=== PATIENT | female | born 1955 | race Caucasian/White ===

== ENCOUNTER → 2024-05-27 10:04 | Outpatient (REF) | payer MEDICARE, OTHER, SELFPAY | LOC: HWRAD 10:04 | PROVIDERS: ATTENDING PHYSICIAN Physician Assistant Medical | DX: Z01.30 Encounter for examination of blood pressure without abnormal findings (principal); M81.0 Age-related osteoporosis without current pathological fracture | CPT/HCPCS: 77080 ==

== ENCOUNTER → 2024-06-29 13:05 | Outpatient (REF) | payer MEDICARE, OTHER, SELFPAY ==
[2024-06-29 14:16] LABS: % Basophils 0.5 % (0-2); % Eosinophils 0.6 % (0-6); % Immature Granulocytes 0.5 % (0-0.5); % Lymphocytes 27.6 % (20.5-51.1); % Monocytes 5.5 % (1.7-9.3); % Neutrophils 65.3 % (42.2-75.2); Absolute Eosinophils 0.1 10^3/uL (0-0.7); Absolute Lymphocytes 2.3 10^3/uL (1.2-3.4); Absolute Monocytes 0.5 10^3/uL (0.1-0.6); Absolute Neutrophils 5.5 10^3/uL (1.4-6.5); Hematocrit 30.7 % (37.0-47.0); Mean Corp Hgb Conc. 32.6 g/dL (33.0-37.0); Mean Corpuscular Hgb 21.5 pg (27.0-31.0); Mean Corpuscular Volume 65.9 fL (81.0-99.0); Mean Platelet Volume 10.1 fL (7.4-10.4); Nucleated Red Blood Cells % 0 %; Platelet Count 449 10^3/uL (130-400); Red Blood Cell Count 4.66 10^6/uL (4.20-5.40); Red Cell Dist. Width 14.9 % (11.5-14.5); White Blood Cell Count 8.5 10^3/uL (4.8-10.8)
[2024-06-29 14:49] LABS: ALT (SGPT) 16 U/L (0-35); AST (SGOT) 29 U/L (14-36); Albumin 3.6 g/dl (3.5-5.0); Alkaline Phosphatase 65 U/L (38-126); Blood Urea Nitrogen 15 mg/dl (7-17); Calcium 8.9 mg/dl (8.4-10.2); Carbon Dioxide 27 mmol/L (22-30); Chloride 101 mmol/L (98-107); Glucose 134 mg/dl (70-99); Potassium 3.8 mmol/L (3.5-5.1); Sodium 137 mmol/L (135-145); Total Bilirubin 0.4 mg/dl (0.2-1.3); Total Protein 6.3 g/dl (6.3-8.2); eGFR > 60.00
== END ==
LOC: REG 13:05
PROVIDERS: ATTENDING PHYSICIAN Physician Assistant Medical
DX: R10.30 Lower abdominal pain, unspecified (principal); R10.2 Pelvic and perineal pain; R14.0 Abdominal distension (gaseous)
CPT/HCPCS: 36415; 80053; 85025

== ENCOUNTER → 2024-06-30 13:52 | Outpatient (REF) | payer MEDICARE, OTHER, SELFPAY | LOC: RAD 13:52 | PROVIDERS: ATTENDING PHYSICIAN Physician Assistant Medical | DX: R10.30 Lower abdominal pain, unspecified (principal); R10.2 Pelvic and perineal pain; R14.0 Abdominal distension (gaseous) | CPT/HCPCS: 74178; Q9967 ==

== ENCOUNTER → 2024-07-10 11:39 | Outpatient (REF) | payer MEDICARE, OTHER, SELFPAY ==
[2024-07-10] VITALS (7 sets, daily range): BP systolic 78–162; BP diastolic 76–86
== END ==
LOC: RADI 11:39
PROVIDERS: ATTENDING PHYSICIAN Obstetrics & Gynecology Gynecologic Oncology; FAMILY PHYSICIAN Physician Assistant Medical
DX: C26.0 Malignant neoplasm of intestinal tract, part unspecified (principal)
CPT/HCPCS: 88305; 49180; 77012; 88333; 88341; 88360; 99152

== ENCOUNTER → 2024-07-20 08:34 | Outpatient (REF) | payer MEDICARE, OTHER, SELFPAY ==
[2024-07-20 09:03] VITALS: BP 142/66; BP_SYST 86
[2024-07-20] MEDS: ANCEF 10 IV (09:51)
[2024-07-20 11:15] VITALS: BP 140/67
== END ==
LOC: RADI 08:34
PROVIDERS: ATTENDING PHYSICIAN Obstetrics & Gynecology Gynecologic Oncology; FAMILY PHYSICIAN Physician Assistant Medical
DX: C56.1 Malignant neoplasm of right ovary (principal)
CPT/HCPCS: 36561; 76937; 77001; 99152; 99153; C1788

== ENCOUNTER 2024-07-27 06:22 | Day surgery (SDC) | payer MEDICARE, OTHER, SELFPAY | END 2024-07-27 10:20 | disposition home or self-care (01) | LOC: GI 06:22 | PROVIDERS: ATTENDING PHYSICIAN Internal Medicine Gastroenterology | DX: R19.00 Intra-abdominal and pelvic swelling, mass and lump, unspecified site (principal); R94.8 Abnormal results of function studies of other organs and systems; K64.0 First degree hemorrhoids; K63.89 Other specified diseases of intestine; R93.3 Abnormal findings on diagnostic imaging of other parts of digestive tract; K31.7 Polyp of stomach and duodenum; D12.0 Benign neoplasm of cecum; D12.3 Benign neoplasm of transverse colon | CPT/HCPCS: 45385; 45380; 43239; 88305 ==

== ENCOUNTER 2024-07-28 13:54 | Day surgery (SDC) | payer MEDICARE, OTHER, SELFPAY ==
[2024-07-28 13:13] VITALS: BMI 25.2
[2024-07-28 13:30] VITALS: BP 140/75; BMI 25.2
[2024-07-28 16:00] VITALS: BP 111/69
[2024-07-28 16:16] VITALS: BP 126/83
== END 2024-07-28 16:30 | disposition home or self-care (01) ==
LOC: GI 13:54
PROVIDERS: ATTENDING PHYSICIAN Internal Medicine Gastroenterology
DX: R93.5 Abnormal findings on diagnostic imaging of other abdominal regions, including retroperitoneum (principal); R18.8 Other ascites; C76.3 Malignant neoplasm of pelvis
CPT/HCPCS: 43237

== ENCOUNTER 2024-08-01 15:24 | Emergency (ER) | payer MEDICARE, SELFPAY ==
[2024-08-01 15:35] VITALS: BP 181/78
--- NOTE | 2024-08-01 15:37 | ED.GENMED ---
ED Provider Triage
<Alex Machado PA-C - Last Filed: 08/01/24 15:38>
-
Patient seen by provider in Triage?: Seen in Triage
Attestation: A medical screening examination has been initiated by a qualified medical provider. Based on the assessment performed at this time, it has been determined that an emergent medical condition may exist and the patient has been informed
that further medical evaluation and possible additional diagnostic testing may be needed.
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 Motley for increased abdominal edema and bilateral lower extremity edema with concern for possible DVT. He is requesting labs,
CT of the abdomen and pelvis as well as ultrasound to rule out DVT ordered. Patient is otherwise currently stable.
GENERAL: Alert , in no apparent distress
EYE: No visual abnormalities.
NECK: Trachea midline
ENT: No visible abnormalities.
LUNGS: No acute respiratory distress
NEUROLOGICAL: Alert and oriented
SKIN: Skin intact. No visible changes.
MUSCULOSKELETAL: Moving extremities normally
PSYCH: Normal and appropriate interaction.
This is a medical evaluation conducted in person to initiate diagnostic evaluation and provide initial therapeutics. Please see further documentation by the treating clinician.
History of Present Illness
<Alex Machado PA-C - Last Filed: 08/01/24 15:38>
General
Chief Complaint: Abdominal Pain
Time Seen by Provider: 08/01/24 18:51
<Connie Watkins PA-C - Last Filed: 08/02/24 23:53>
General
Source: patient
Exam Limitations: none
Nursing documentation reviewed up to this point in time: agreed with
History of Present Illness
History of Present Illness:
Patient is a 69-year-old female with history hypertension, recently diagnosed ovarian CA presenting to the emergency department for evaluation of abdominal distention and worsening lower leg swelling. Patient reports recent increase in abdominal
distention and abdominal discomfort. She also noticed today that her left leg seemed swollen. Patient states that she has gained 10 pounds in the past week. 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 Motley who recommended she be seen
in the emergency department to rule out a possible blood clot and to evaluate for worsening ascites.
Patient denies any fevers or chills. Patient denies any chest pain or shortness of breath. Patient denies any severe abdominal pain, just states that she feels 'full '.
Patient is reportedly scheduled for surgery this week to remove ovarian mass.
Past History
<Alex Machado PA-C - Last Filed: 08/01/24 15:38>
Past History
ED Past Medical History: None
Social History
Tobacco: Non-smoker
Personal: Other (Engaged)
Review of Systems
<Connie Watkins PA-C - Last Filed: 08/02/24 23:53>
Review of Systems
Allergies reviewed?: Yes
All Other Systems: ROS reviewed and negative except as documented in HPI and ROS
Phy Exam
<Connie Watkins PA-C - Last Filed: 08/02/24 23:53>
Physical Exam
Physical Exam:
Vitals: Hypertensive, otherwise stable vital signs
General: Patient is well appearing, no acute distress. Nontoxic appearing
Skin: Warm and dry, no rashes or lesions
Head: Normocephalic, atraumatic
Eyes: Sclera nonicteric. EOMs intact. No nystagmus.
Throat: Protecting airway
Neck: Normal ROM, no cervical spine tenderness, no meningismus
Cardiac: Regular rate and rhythm, no murmurs.
Pulm: Normal respiratory effort, no wheezes, rales, rhonchi heard on exam.
Abdomen: Moderate abdominal distention. Soft. No rebound tenderness or guarding. No CVA tenderness
Extremities: Trace edema of bilateral lower extremities. Sensation fully intact. Palpable DP pulses bilaterally. Negative Homans' sign bilaterally. No erythema or warmth of lower extremities.
Neuro: AAOx3. Grossly intact.
Psychiatric: Normal affect.
Course
<Alex Machado PA-C - Last Filed: 08/01/24 15:38>
Orders/Labs/Results
Orders:
Orders
08/01/24 15:35
CT Abd/pelvis W Iv Cont Urgent
Comment:
Reason For Exam: abd edema, newly diagnosed ovarian cancer
Venous Doppler Lwr Ext Bilat [US Periph Venous LOWER Ext Tan] Urgent
Comment:
Reason For Exam: edema, recent ovarian cancer diagnosis
08/01/24 15:51
Complete Blood Count/With Diff Urgent
Comprehensive Metabolic Panel Urgent
NT-proBNP Urgent
Abnormal Lab Results
08/01/24
15:51
Hgb 10.9 L g/dL
(12.0-16.0)
Hct 34.4 L %
(37.0-47.0)
MCV 64.5 L fL
(81.0-99.0)
MCH 20.5 L pg
(27.0-31.0)
MCHC 31.7 L g/dL
(33.0-37.0)
RDW 19.0 H %
(11.5-14.5)
Sodium 134 L mmol/L
(135-145)
Creatinine 0.5 L mg/dL
(0.6-1.0)
Total Protein 5.8 L g/dl
(6.3-8.2)
Albumin 3.4 L g/dl
(3.5-5.0)
08/01/24 15:51
08/01/24 15:51
Vital Signs
Initial and Last Documented VS:
Initial Vital Signs
Temp Pulse Resp BP Pulse Ox
98 F 96 18 181/78 100
08/01/24 15:35 08/01/24 15:35 08/01/24 15:35 08/01/24 15:35 08/01/24 15:35
Last Documented Vital Signs
Temp Pulse Resp BP Pulse Ox
97.6 F 81 17 126/76 97
08/01/24 17:51 08/01/24 20:51 08/01/24 20:51 08/01/24 20:51 08/01/24 20:51
<Connie Watkins PA-C - Last Filed: 08/02/24 23:53>
Orders/Labs/Results
Orders:
Orders
08/01/24 15:35
CT Abd/pelvis W Iv Cont Urgent
Comment:
Reason For Exam: abd edema, newly diagnosed ovarian cancer
Venous Doppler Lwr Ext Bilat [US Periph Venous LOWER Ext Tan] Urgent
Comment:
Reason For Exam: edema, recent ovarian cancer diagnosis
08/01/24 15:51
Complete Blood Count/With Diff Urgent
Comprehensive Metabolic Panel Urgent
NT-proBNP Urgent
Abnormal Lab Results
08/01/24
15:51
Hgb 10.9 L g/dL
(12.0-16.0)
Hct 34.4 L %
(37.0-47.0)
MCV 64.5 L fL
(81.0-99.0)
MCH 20.5 L pg
(27.0-31.0)
MCHC 31.7 L g/dL
(33.0-37.0)
RDW 19.0 H %
(11.5-14.5)
Sodium 134 L mmol/L
(135-145)
Creatinine 0.5 L mg/dL
(0.6-1.0)
Total Protein 5.8 L g/dl
(6.3-8.2)
Albumin 3.4 L g/dl
(3.5-5.0)
08/01/24 15:51
08/01/24 15:51
Vital Signs
Initial and Last Documented VS:
Initial Vital Signs
Temp Pulse Resp BP Pulse Ox
98 F 96 18 181/78 100
08/01/24 15:35 08/01/24 15:35 08/01/24 15:35 08/01/24 15:35 08/01/24 15:35
Last Documented Vital Signs
Temp Pulse Resp BP Pulse Ox
97.6 F 81 17 126/76 97
08/01/24 17:51 08/01/24 20:51 08/01/24 20:51 08/01/24 20:51 08/01/24 20:51
<Connie Watkins PA-C - Last Filed: 08/02/24 23:53>
MDM/Problems Addressed
Differential Diagnosis Includes:
Not limited to: Abdominal ascites secondary to progression of disease, DVT, Santiago's cyst, CHF, cellulitis, do not suspect SBP etc.
MDM/Problems Addressed:
69 year old female with recently diagnosed ovarian cancer presenting with worsening abdominal distention and lower extremity swelling. No fevers or systemic signs of infection. No significant abdominal pain. Patient hypertensive on arrival although
resolved by my assessment. Otherwise has stable vital signs, she is afebrile. Exam as above.
Patient sent over by leather grainer/onc Dr. Motley to r/o DVT and evaluate for worsening ascites. Labs obtained in triage without clinically significant abnormalities. B/l lower extremity US show no DVT, b/l bakers cysts noted. CT report shows progression of
disease including increase in ovarian mass and worsening ascites. Clinically - patient without infectious symptoms or abdominal pain. Do not suspect SBP.
CT was discussed with Dr. Motley. Given increase in ascites - admission was discussed with patient for possible therapeutic paracentesis. Patient declines admission and will plan for outpatient paracentesis on Saturday. Dr. Motley feels this is
reasonable. Patient will be discharged with close leather grainer/onc f/u outpatient. Return precautions discussed - specifically any signs of infection.
Chronic conditions affecting care:
Ovarian CA, hypertension
Acute Exacerbation and/or Progression of Chronic Illness:
Acutely hypertensive
<Connie Watkins PA-C - Last Filed: 08/02/24 23:53>
*Radiology
Radiology exam reviewed: radiology read reviewed
*Pulse Oximetry
Patient hypoxic: no
*EKG
Interpreted by ED Provider?: NA
*Guest Experience Specialist Interpretation
Rate: Guest Experience Specialist- N/A
*Critical Care Note
Total Time (30-74mins, 75-104mins- exclusive of procedures): Not Applicable
<Connie Watkins PA-C - Last Filed: 08/02/24 23:53>
Patient Management
Discussion with other providers: Casting Tester (Chemist Organic/onc - Dr. Motley)
Escalation/DeEscalation of care consider admission/obs:
Admission offered for therapeutic paracenteses although patient declines will be discharged with outpatient leather grainer/onc f/u
ED Attending Note
<Alex Machado PA-C - Last Filed: 08/01/24 15:38>
-
Portions of this chart may have been created with voice recognition software.� Occasional wrong word or��sound alike� substitutions may have occurred due to the inherent limitations of voice recognition software.
Discharge Plan
Departure
Patient Disposition: Home (Routine Discharge)
Date of Disposition: 08/01/24
Time of Disposition: 21:25
Patient with high blood pressure during this ER visit?: Yes
Condition: Good
Covid-19: Not Applicable
Discharge Problem:
Abdominal ascites, Swelling of both lower extremities
Instructions: Santiago's Cyst (DC), Abdominal Pain, BLOOD PRESSURE
Prescriptions:
No Action
multivitamin Tablet
1 tab PO DAILY
garlic 100 mg Tablet
100 mg PO DAILY
coenzyme Q10 [CoQ-10] 100 mg Capsule
100 mg PO DAILY
Fish Oil 900 mg-360 mg- 455 mg-1,000 mg Capsule
1 cap PO DAILY
Vitamin C 1,000 mg Tablet Extended Release
1,000 mg PO Q12H
cholecalciferol (vitamin D3) [Vitamin D3] 50 mcg (2,000 unit) Tablet
50 mcg PO DAILY
turmeric 400 mg Capsule
400 mg PO DAILY
collagen
1 dose PO DAILY
zinc
1 dose PO DAILY
magnesium
1 dose PO DAILY
Referrals:
Donnell Taylor PA-C [Family Provider] -
Ar Motley MD [Active] - Keep scheduled appt
Activity Restrictions/Additional Instructions:
Return to the emergency department with any fevers, worsening abdominal pain/distention, intractable nausea/vomiting, chest pain, shortness of breath, worsening in current symptoms, or any other concerns
-As discussed�your ultrasound showed no evidence of blood clots today. However�you do have bilateral Santiago's cyst.
-You should follow-up with your gynecology/oncologist, Dr. Motley closely as scheduled
Monitor your symptoms closely and return to the emergency department with any acute worsening/new symptoms or any signs of infection
Interventions
Interventions:
*Risk Screen - Suicide Last Done: 08/01/24 15:35
*General Assessment Last Done: 08/01/24 15:35
*Neglect/Abuse Screening Last Done: 08/01/24 15:35
*ED COVID-19 Vaccine History Last Done: 08/01/24 15:35
*Nursing Disposition Last Done: 08/01/24 21:46
LO-Gtcjah-Wceecwllnr Assessment Last Done: 08/01/24 17:24
Discharge Date and Time
Discharge Date/Time: 08/01/24 21:46
Print Language: LIBYAN
[2024-08-01 16:18] LABS: % Basophils 0.5 % (0-2); % Eosinophils 0.7 % (0-6); % Immature Granulocytes 0.3 % (0-0.5); % Lymphocytes 29.8 % (20.5-51.1); % Neutrophils 62.7 % (42.2-75.2); Absolute Eosinophils 0.1 10^3/uL (0-0.7); Absolute Lymphocytes 2.2 10^3/uL (1.2-3.4); Absolute Monocytes 0.5 10^3/uL (0.1-0.6); Absolute Neutrophils 4.7 10^3/uL (1.4-6.5); Hematocrit 34.4 % (37.0-47.0); Hemoglobin 10.9 g/dL (12.0-16.0); Mean Corp Hgb Conc. 31.7 g/dL (33.0-37.0); Mean Corpuscular Hgb 20.5 pg (27.0-31.0); Mean Corpuscular Volume 64.5 fL (81.0-99.0); Mean Platelet Volume 10.1 fL (7.4-10.4); Nucleated Red Blood Cells % 0 %; Platelet Count 306 10^3/uL (130-400); Red Blood Cell Count 5.33 10^6/uL (4.20-5.40); White Blood Cell Count 7.5 10^3/uL (4.8-10.8)
[2024-08-01 16:26] LABS: ALT (SGPT) 13 U/L (0-35); AST (SGOT) 32 U/L (14-36); Albumin 3.4 g/dl (3.5-5.0); Alkaline Phosphatase 47 U/L (38-126); Blood Urea Nitrogen 14 mg/dl (7-17); Calcium 8.5 mg/dl (8.4-10.2); Carbon Dioxide 27 mmol/L (22-30); Chloride 100 mmol/L (98-107); Glucose 99 mg/dl (70-99); Sodium 134 mmol/L (135-145); Total Bilirubin 0.9 mg/dl (0.2-1.3); Total Protein 5.8 g/dl (6.3-8.2); eGFR > 60.00
[2024-08-01 16:35] LABS: NT-proBNP 58.9 pg/ml
[2024-08-01 17:24] VITALS: BP 142/69
[2024-08-01 17:51] VITALS: BP 109/74
[2024-08-01 20:51] VITALS: BP 126/76
== END 2024-08-01 21:46 | disposition home or self-care (01) ==
LOC: EMR 15:24
PROVIDERS: Physician Assistant Medical; EMERGENCY PHYSICIAN Emergency Medicine; FAMILY PHYSICIAN Physician Assistant Medical
DX: R18.8 Other ascites (principal); R60.0 Localized edema; R10.9 Unspecified abdominal pain; C56.9 Malignant neoplasm of unspecified ovary; I10 Essential (primary) hypertension
CPT/HCPCS: 99284; 74177; 80053; 83880; 85025; 93970; Q9967

== ENCOUNTER → 2024-08-04 10:16 | Outpatient (REF) | payer MEDICARE, SELFPAY ==
[2024-08-04 10:20] VITALS: BP 113/80; BP_SYST 106
[2024-08-04 11:25] VITALS: BP 126/67; BP_SYST 104
[2024-08-04 11:30] VITALS: BP 126/67
[2024-08-04 11:56] LABS: Body Fluid Mononuclear 61.5 %; Body Fluid Polymorphonuclear 38.5 %; Body Fluid WBC 281 /CUMM
[2024-08-04 12:03] LABS: Body Fluid Second Tech ASW
== END ==
LOC: RADI 10:16
PROVIDERS: ATTENDING PHYSICIAN Obstetrics & Gynecology Gynecologic Oncology
DX: C80.1 Malignant (primary) neoplasm, unspecified (principal); R18.0 Malignant ascites
CPT/HCPCS: 88305; 49083; 88112; 89051

== ENCOUNTER 2024-08-10 08:35 | Emergency (ER) | payer MEDICARE, OTHER, SELFPAY ==
[2024-08-10 08:36] VITALS: BP 133/85
--- NOTE | 2024-08-10 10:10 | ED.GENMED ---
History of Present Illness
General
Chief Complaint: Abdominal Symptoms
Source: patient
Exam Limitations: none
Time Seen by Provider: 08/10/24 09:51
Nursing documentation reviewed up to this point in time: agreed with
History of Present Illness
History of Present Illness:
Patient with history of metastatic ovarian cancer, being scheduled for initiation of chemotherapy, status post paracentesis last week, presents to ED secondary to increased abdominal swelling, which has caused nausea sensation along with shortness
of breath, especially over the past 48 hours. Denies fever or chills. Denies coughing. Denies vomiting or diarrhea. Denies loss of appetite. Denies dizziness.
Past History
Past History
ED Past Medical History: None
Social History
Tobacco: Non-smoker
Personal: Other (Engaged)
Review of Systems
Review of Systems
Allergies reviewed?: Yes
All Other Systems: ROS reviewed and negative except as documented in HPI and ROS
Constitutional: Reports no symptoms; Denies fever or chills
Respiratory: Reports trouble breathing; Denies cough
Cardiac: Reports no symptoms
ABD/GI: Reports nausea; Denies abdominal pain, vomiting or diarrhea
: Reports no symptoms
Musculoskeletal: Reports no symptoms
Skin: Reports no symptoms
Neurological: Reports no symptoms
Phy Exam
Physical Exam
Physical Exam:
Physical Exam
General: no apparent distress, not acutely ill. afebrile
Head: nc/at. eomi
Neck: supple. normal range of motion.
Heart: s1/s2 regular rate and rhythm, no murmur. equal radial pulses.
Lungs: no acute respiratory distress. clear bilaterally
Abdomen: normal bowel sounds. not tender. mild distention noted.
Neuro: alert and oriented x 3. no focal neurological deficits
Skin: no rash
Psychiatric: well kept. interactive and cooperative
Extremities: no edema. no calf tenderness.
Course
Orders/Labs/Results
Orders:
Orders
08/10/24 08:40
Crisis Consult Urgent
Reason for Consult: SI
08/10/24 10:11
[facility] CONSULT Urgent
Consulting Provider: Robbie Fried
Was physician already notified: Yes
Reason for Consult/Procedure: paracentesis
Acknowledgement that appropriate orders are entered: Yes
08/10/24 13:26
Body Fluid Cell Count Routine
What is the Body Fluid: peritoneal
Date Specimen was Collected: 08/10/24
Time Specimen was Collected: 13:19
Vital Signs
Initial and Last Documented VS:
Initial Vital Signs
Temp Pulse Resp BP Pulse Ox
98.0 F 108 16 133/85 98
08/10/24 08:36 08/10/24 08:36 08/10/24 08:36 08/10/24 08:36 08/10/24 08:36
Last Documented Vital Signs
Temp Pulse Resp BP Pulse Ox
98.3 F 104 18 123/69 97
08/10/24 12:35 08/10/24 15:06 08/10/24 13:45 08/10/24 15:06 08/10/24 15:06
MDM/Problems Addressed
MDM/Problems Addressed:
2.25 L of fluid removed during paracentesis with [facility], with improvement in symptoms. Patient otherwise is afebrile, hemodynamically stable, and nontoxic-appearing. Likely future paracentesis, to be arranged by [facility] in coordination with patient's
oncologist.
Discussed with GI/[facility] - no indication for albumin infusion at this time
Discussed ED visit with patient's oncologist, . via tigertext
*Critical Care Note
Total Time (30-74mins, 75-104mins- exclusive of procedures): Not Applicable
ED Attending Note
-
Portions of this chart may have been created with voice recognition software.� Occasional wrong word or��sound alike� substitutions may have occurred due to the inherent limitations of voice recognition software.
Discharge Plan
Departure
Patient Disposition: Home (Routine Discharge)
Date of Disposition: 08/10/24
Time of Disposition: 14:59
Patient with high blood pressure during this ER visit?: Yes
Condition: Good
Discharge Problem:
Ascites
Instructions: Abdominal paracentesis
Prescriptions:
No Action
multivitamin Tablet
1 tab PO DAILY
garlic 100 mg Tablet
100 mg PO DAILY
coenzyme Q10 [CoQ-10] 100 mg Capsule
100 mg PO DAILY
Fish Oil 900 mg-360 mg- 455 mg-1,000 mg Capsule
1 cap PO DAILY
Vitamin C 1,000 mg Tablet Extended Release
1,000 mg PO Q12H
cholecalciferol (vitamin D3) [Vitamin D3] 50 mcg (2,000 unit) Tablet
50 mcg PO DAILY
turmeric 400 mg Capsule
400 mg PO DAILY
collagen
1 dose PO DAILY
zinc
1 dose PO DAILY
magnesium
1 dose PO DAILY
Referrals:
Donnell Taylor PA-C [Family Provider] -
Activity Restrictions/Additional Instructions:
As discussed, please continue to follow-up with your oncologist for further evaluation and treatment.
Interventions
Interventions:
*Risk Screen - Suicide Last Done: 08/10/24 08:36
*General Assessment Last Done: 08/10/24 08:36
*Neglect/Abuse Screening Last Done: 08/10/24 15:06
ED- Fall Risk Assessment Last Done: 08/10/24 15:06
*ED COVID-19 Vaccine History Last Done: 08/10/24 08:36
*Nursing Disposition Last Done: 08/10/24 15:06
IS-Fwhnnd-Fwxrvaacdo Assessment Last Done: 08/10/24 11:31
Discharge Date and Time
Discharge Date/Time: 08/10/24 15:07
Print Language: JORDANIAN
[2024-08-10 11:08] VITALS: BP 108/71
[2024-08-10 12:35] VITALS: BP 127/71; BP_SYST 107
[2024-08-10 13:27] VITALS: BP 124/61
[2024-08-10 13:45] VITALS: BP 119/74
[2024-08-10 13:54] LABS: Body Fluid Mononuclear 70.2 %; Body Fluid Polymorphonuclear 29.8 %; Body Fluid WBC 215 /CUMM
[2024-08-10 13:56] LABS: Body Fluid Second Tech ASW
[2024-08-10 15:06] VITALS: BP 123/69
== END 2024-08-10 15:07 | disposition home or self-care (01) ==
LOC: EMR 08:35
PROVIDERS: CONSULT PHYSICIAN Radiology Vascular & Interventional Radiology; EMERGENCY PHYSICIAN Emergency Medicine; FAMILY PHYSICIAN Physician Assistant Medical
DX: C56.9 Malignant neoplasm of unspecified ovary (principal); R18.0 Malignant ascites; C79.9 Secondary malignant neoplasm of unspecified site
CPT/HCPCS: 99285; 49083; 89051

== ENCOUNTER → 2024-08-13 13:41 | Outpatient (REF) | payer MEDICARE, OTHER, SELFPAY ==
[2024-08-13 14:30] LABS: % Basophils 0.3 % (0-2); % Eosinophils 0.3 % (0-6); % Immature Granulocytes 0.7 % (0-0.5); % Lymphocytes 16.6 % (20.5-51.1); % Monocytes 5.6 % (1.7-9.3); % Neutrophils 76.5 % (42.2-75.2); Absolute Immature Granulocytes 0.1 10^3/uL (0-0.05); Absolute Lymphocytes 1.6 10^3/uL (1.2-3.4); Absolute Monocytes 0.6 10^3/uL (0.1-0.6); Absolute Neutrophils 7.5 10^3/uL (1.4-6.5); Hematocrit 36.3 % (37.0-47.0); Hemoglobin 11.6 g/dL (12.0-16.0); Mean Corpuscular Hgb 20.8 pg (27.0-31.0); Mean Corpuscular Volume 64.9 fL (81.0-99.0); Mean Platelet Volume 9.3 fL (7.4-10.4); Nucleated Red Blood Cells % 0 %; Platelet Count 443 10^3/uL (130-400); Red Blood Cell Count 5.59 10^6/uL (4.20-5.40); Red Cell Dist. Width 20.8 % (11.5-14.5); White Blood Cell Count 9.8 10^3/uL (4.8-10.8)
[2024-08-13 14:48] LABS: D-Dimer 5.09 ug/mlFEU (0.00-0.50)
[2024-08-13 14:54] LABS: ALT (SGPT) 12 U/L (0-35); AST (SGOT) 43 U/L (14-36); Albumin 2.8 g/dl (3.5-5.0); Alkaline Phosphatase 67 U/L (38-126); Blood Urea Nitrogen 9 mg/dl (7-17); Calcium 8.3 mg/dl (8.4-10.2); Carbon Dioxide 26 mmol/L (22-30); Chloride 95 mmol/L (98-107); Glucose 147 mg/dl (70-99); Potassium 4.6 mmol/L (3.5-5.1); Sodium 127 mmol/L (135-145); Total Bilirubin 0.5 mg/dl (0.2-1.3); Total Protein 5.3 g/dl (6.3-8.2); eGFR > 60.00
[2024-08-13 15:29] LABS: Urine Protein 7 mg/dl
== END ==
LOC: REG 13:41
PROVIDERS: ATTENDING PHYSICIAN Internal Medicine Hematology & Oncology; FAMILY PHYSICIAN Physician Assistant Medical
DX: C56.1 Malignant neoplasm of right ovary (principal); C80.0 Disseminated malignant neoplasm, unspecified; D56.9 Thalassemia, unspecified; G89.3 Neoplasm related pain (acute) (chronic)
CPT/HCPCS: 36415; 80053; 82570; 84156; 85025; 85379

== ENCOUNTER → 2024-08-17 10:48 | Outpatient (REF) | payer MEDICARE, OTHER, SELFPAY ==
[2024-08-17 11:24] VITALS: BP 129/80
[2024-08-17 13:06] LABS: Body Fluid Mononuclear 47.9 %; Body Fluid Polymorphonuclear 52.1 %; Body Fluid Second Tech EM; Body Fluid WBC 808 /CUMM
== END ==
LOC: RADI 10:48
PROVIDERS: ATTENDING PHYSICIAN Physician Assistant Surgical; FAMILY PHYSICIAN Physician Assistant Medical
DX: C80.1 Malignant (primary) neoplasm, unspecified (principal); R18.0 Malignant ascites
CPT/HCPCS: 49083; 89051

== ENCOUNTER → 2024-08-18 09:08 | Outpatient (REF) | payer MEDICARE, OTHER, SELFPAY | LOC: WDC 09:08 | PROVIDERS: ATTENDING PHYSICIAN Internal Medicine Hematology & Oncology; FAMILY PHYSICIAN Physician Assistant Medical | DX: R92.8 Other abnormal and inconclusive findings on diagnostic imaging of breast (principal) | CPT/HCPCS: 77062; 77066 ==

== ENCOUNTER → 2024-08-26 09:50 | Outpatient (REF) | payer MEDICARE, OTHER, SELFPAY | LOC: HWRAD 09:50 | PROVIDERS: ATTENDING PHYSICIAN Internal Medicine Hematology & Oncology; FAMILY PHYSICIAN Physician Assistant Medical | DX: C56.1 Malignant neoplasm of right ovary (principal); C80.0 Disseminated malignant neoplasm, unspecified; D56.9 Thalassemia, unspecified; G89.3 Neoplasm related pain (acute) (chronic) | CPT/HCPCS: 76705 ==

== ENCOUNTER → 2024-09-28 12:56 | Outpatient (REF) | payer MEDICARE, OTHER, SELFPAY ==
[2024-09-28 13:20] VITALS: BP 136/80; BP_SYST 82
[2024-09-28 14:01] VITALS: BP 130/68; BP_SYST 77
[2024-09-28 14:05] VITALS: BP 130/68
[2024-09-28 15:17] LABS: Body Fluid Mononuclear 28.5 %; Body Fluid Polymorphonuclear 71.5 %; Body Fluid WBC 2943 /CUMM
[2024-09-28 16:04] LABS: Body Fluid Second Tech DW
== END ==
LOC: RADI 12:56
PROVIDERS: ATTENDING PHYSICIAN Physician Assistant Surgical; FAMILY PHYSICIAN Physician Assistant Medical; OTHER PHYSICIAN Internal Medicine Hematology & Oncology
DX: C80.1 Malignant (primary) neoplasm, unspecified (principal); R18.0 Malignant ascites
CPT/HCPCS: 49083; 89051

== ENCOUNTER → 2024-10-09 09:53 | Outpatient (REF) | payer MEDICARE, OTHER, SELFPAY ==
[2024-10-09 10:15] VITALS: BP 139/82; BP_SYST 99
[2024-10-09 10:50] VITALS: BP 133/77; BP_SYST 88
[2024-10-09 10:58] VITALS: BP 133/77
[2024-10-09 11:57] LABS: Body Fluid WBC 1956 /CUMM
[2024-10-09 11:58] LABS: Body Fluid Mononuclear 31.7 %; Body Fluid Polymorphonuclear 68.3 %; Body Fluid Second Tech EM
== END ==
LOC: RADI 09:53
PROVIDERS: ATTENDING PHYSICIAN Physician Assistant Surgical; FAMILY PHYSICIAN Physician Assistant Medical
DX: C80.1 Malignant (primary) neoplasm, unspecified (principal); R18.0 Malignant ascites
CPT/HCPCS: 49083; 89051

== ENCOUNTER → 2024-10-12 07:59 | Outpatient (REF) | payer MEDICARE, OTHER, SELFPAY | LOC: HWRAD 07:59 | PROVIDERS: ATTENDING PHYSICIAN Nurse Practitioner Adult Health; FAMILY PHYSICIAN Physician Assistant Medical; REFERRING PHYSICIAN Internal Medicine Hematology & Oncology | DX: C80.0 Disseminated malignant neoplasm, unspecified (principal); C56.1 Malignant neoplasm of right ovary; C56.9 Malignant neoplasm of unspecified ovary; G89.3 Neoplasm related pain (acute) (chronic) | CPT/HCPCS: 76700 ==

== ENCOUNTER → 2024-10-16 06:54 | Outpatient (REF) | payer MEDICARE, OTHER, SELFPAY ==
[2024-10-16 07:10] VITALS: BP 113/66; BP_SYST 92
[2024-10-16 08:05] VITALS: BP 113/55; BP_SYST 89
[2024-10-16 08:15] VITALS: BP 113/55
[2024-10-16 10:19] LABS: Body Fluid Mononuclear 29.1 %; Body Fluid Polymorphonuclear 70.9 %; Body Fluid WBC 1972 /CUMM
[2024-10-16 10:56] LABS: Body Fluid Second Tech AMA
== END ==
LOC: RADI 06:54
PROVIDERS: ATTENDING PHYSICIAN Physician Assistant Surgical; FAMILY PHYSICIAN Physician Assistant Medical; OTHER PHYSICIAN Internal Medicine Hematology & Oncology
DX: C80.1 Malignant (primary) neoplasm, unspecified (principal); R18.0 Malignant ascites
CPT/HCPCS: 49083; 89051

== ENCOUNTER → 2024-10-26 10:35 | Outpatient (REF) | payer MEDICARE, OTHER, SELFPAY ==
[2024-10-26 10:52] VITALS: BP 143/77; BP_SYST 96
[2024-10-26 11:30] VITALS: BP 106/41
[2024-10-26 12:15] LABS: Body Fluid WBC 1477 /CUMM
[2024-10-26 12:16] LABS: Body Fluid Mononuclear 29.3 %; Body Fluid Polymorphonuclear 70.7 %
[2024-10-26 12:17] LABS: Body Fluid Second Tech EM
== END ==
LOC: RADI 10:35
PROVIDERS: ATTENDING PHYSICIAN Physician Assistant Surgical
DX: C80.1 Malignant (primary) neoplasm, unspecified (principal); R18.0 Malignant ascites
CPT/HCPCS: 49083; 89051

== ENCOUNTER → 2024-11-02 13:26 | Outpatient (REF) | payer MEDICARE, OTHER, SELFPAY | LOC: RAD 13:26 | PROVIDERS: ATTENDING PHYSICIAN Nurse Practitioner Adult Health; FAMILY PHYSICIAN Physician Assistant Medical | DX: C56.1 Malignant neoplasm of right ovary (principal); C80.0 Disseminated malignant neoplasm, unspecified; D56.9 Thalassemia, unspecified; G89.3 Neoplasm related pain (acute) (chronic) | CPT/HCPCS: 74019 ==

== ENCOUNTER → 2024-11-18 12:23 | Outpatient (REF) | payer OTHER, MEDICARE, SELFPAY | LOC: RADI 12:23 | PROVIDERS: ATTENDING PHYSICIAN Physician Assistant Surgical; FAMILY PHYSICIAN Physician Assistant Medical | DX: R18.8 Other ascites (principal); Z53.8 Procedure and treatment not carried out for other reasons | CPT/HCPCS: 76705 ==

== ENCOUNTER → 2024-11-19 10:27 | Outpatient (REF) | payer OTHER, MEDICARE, SELFPAY ==
[2024-11-19 11:34] LABS: CEA 5.25 ng/ml
[2024-11-19 19:04] LABS: CA 125 202 U/mL (0-35)
[2024-11-22 09:24] LABS: CA 19-9 1566 U/mL (<=35)
== END ==
LOC: OIDL 10:27
PROVIDERS: ATTENDING PHYSICIAN Obstetrics & Gynecology Gynecologic Oncology
DX: C56.1 Malignant neoplasm of right ovary (principal); C80.0 Disseminated malignant neoplasm, unspecified
CPT/HCPCS: 82378; 86301; 86304

== ENCOUNTER → 2024-12-03 06:50 | Outpatient (REF) | payer MEDICARE, OTHER, SELFPAY | LOC: RAD 06:50 | PROVIDERS: ATTENDING PHYSICIAN Obstetrics & Gynecology Gynecologic Oncology; FAMILY PHYSICIAN Physician Assistant Medical | DX: C56.1 Malignant neoplasm of right ovary (principal); C80.0 Disseminated malignant neoplasm, unspecified; D56.9 Thalassemia, unspecified; G89.3 Neoplasm related pain (acute) (chronic) | CPT/HCPCS: 71260; 74177; Q9967 ==

== ENCOUNTER → 2024-12-08 08:22 | Outpatient (REF) | payer MEDICARE, OTHER, SELFPAY ==
[2024-12-08 09:11] VITALS: BP 132/77; BP_SYST 84
== END ==
LOC: RADI 08:22
PROVIDERS: ATTENDING PHYSICIAN Physician Assistant Surgical; FAMILY PHYSICIAN Physician Assistant Medical
DX: R18.8 Other ascites (principal); Z53.8 Procedure and treatment not carried out for other reasons
CPT/HCPCS: 76705

== ENCOUNTER → 2024-12-10 08:40 | Outpatient (REF) | payer MEDICARE, OTHER, SELFPAY ==
[2024-12-10 08:47] LABS: % Basophils 0.3 % (0-2); % Eosinophils 0.1 % (0-6); % Immature Granulocytes 0.3 % (0-0.5); % Lymphocytes 25.2 % (20.5-51.1); % Monocytes 7.6 % (1.7-9.3); % Neutrophils 66.5 % (42.2-75.2); Absolute Lymphocytes 1.8 10^3/uL (1.2-3.4); Absolute Monocytes 0.6 10^3/uL (0.1-0.6); Absolute Neutrophils 4.8 10^3/uL (1.4-6.5); Hematocrit 26.7 % (37.0-47.0); Hemoglobin 8.4 g/dL (12.0-16.0); Mean Corp Hgb Conc. 31.5 g/dL (33.0-37.0); Mean Corpuscular Hgb 21.2 pg (27.0-31.0); Mean Corpuscular Volume 67.4 fL (81.0-99.0); Mean Platelet Volume 8.7 fL (7.4-10.4); Platelet Count 392 10^3/uL (130-400); Red Blood Cell Count 3.96 10^6/uL (4.20-5.40); Red Cell Dist. Width 22.8 % (11.5-14.5); White Blood Cell Count 7.2 10^3/uL (4.8-10.8)
[2024-12-10 09:17] LABS: ALT (SGPT) 14 U/L (0-35); AST (SGOT) 44 U/L (14-36); Albumin 3.4 g/dl (3.5-5.0); Alkaline Phosphatase 46 U/L (38-126); Blood Urea Nitrogen 12 mg/dl (7-17); Calcium 8.8 mg/dl (8.4-10.2); Carbon Dioxide 27 mmol/L (22-30); Chloride 109 mmol/L (98-107); Glucose 95 mg/dl (70-99); Potassium 4.2 mmol/L (3.5-5.1); Sodium 140 mmol/L (135-145); Total Bilirubin 0.9 mg/dl (0.2-1.3); Total Protein 5.9 g/dl (6.3-8.2); eGFR > 60.00
[2024-12-10 18:18] LABS: CA 125 155 U/mL (0-35)
[2024-12-12 01:13] LABS: CA 19-9 1478 U/mL (<=35)
== END ==
LOC: OIDL 08:40
PROVIDERS: ATTENDING PHYSICIAN Obstetrics & Gynecology Gynecologic Oncology
DX: C56.1 Malignant neoplasm of right ovary (principal)
CPT/HCPCS: 80053; 85025; 86301; 86304

== ENCOUNTER → 2024-12-21 12:42 | Outpatient (REF) | payer MEDICARE, OTHER, SELFPAY ==
[2024-12-21 12:55] VITALS: BP 139/99; BP_SYST 84
== END ==
LOC: RADI 12:42
PROVIDERS: ATTENDING PHYSICIAN Physician Assistant Surgical; FAMILY PHYSICIAN Physician Assistant Medical
DX: C80.1 Malignant (primary) neoplasm, unspecified (principal); R18.0 Malignant ascites; Z53.8 Procedure and treatment not carried out for other reasons
CPT/HCPCS: 76705

== ENCOUNTER → 2025-01-01 12:25 | Outpatient (REF) | payer MEDICARE, OTHER, SELFPAY ==
[2025-01-01 12:47] VITALS: BP 122/67; BP_SYST 94
[2025-01-01 14:07] LABS: Body Fluid WBC 2016 /CUMM
[2025-01-01 14:08] LABS: Body Fluid Mononuclear 68.9 %; Body Fluid Polymorphonuclear 31.1 %
[2025-01-01 14:19] LABS: Body Fluid Second Tech EM
== END ==
LOC: RADI 12:25
PROVIDERS: ATTENDING PHYSICIAN Physician Assistant Surgical; FAMILY PHYSICIAN Physician Assistant Medical
DX: R18.8 Other ascites (principal)
CPT/HCPCS: 49083; 89051

== ENCOUNTER 2025-01-05 11:08 | Inpatient (IN) | payer MEDICARE, OTHER, SELFPAY ==
[2024-12-29 11:24] LABS: INR 1.07; PT 14.2 Sec (11.4-14.6)
[2024-12-29 11:25] LABS: APTT 34.4 Sec (23.4-35.0)
[2024-12-29 11:41] LABS: ALT (SGPT) 13 U/L (0-35); AST (SGOT) 53 U/L (14-36); Albumin 3.6 g/dl (3.5-5.0); Alkaline Phosphatase 43 U/L (38-126); Blood Urea Nitrogen 8 mg/dl (7-17); Carbon Dioxide 27 mmol/L (22-30); Chloride 108 mmol/L (98-107); Glucose 102 mg/dl (70-99); Sodium 141 mmol/L (135-145); Total Bilirubin 0.5 mg/dl (0.2-1.3); Total Protein 6.4 g/dl (6.3-8.2); eGFR > 60.00
[2024-12-29 11:46] LABS: Hematocrit 27.8 % (37.0-47.0); Hemoglobin 8.5 g/dL (12.0-16.0); Mean Corp Hgb Conc. 30.6 g/dL (33.0-37.0); Mean Corpuscular Volume 68.8 fL (81.0-99.0); Mean Platelet Volume 9.1 fL (7.4-10.4); Platelet Count 405 10^3/uL (130-400); Red Blood Cell Count 4.04 10^6/uL (4.20-5.40); Red Cell Dist. Width 23.9 % (11.5-14.5); White Blood Cell Count 6.5 10^3/uL (4.8-10.8)
[2024-12-29 12:10] LABS: CEA 7.83 ng/ml
[2024-12-29 12:22] LABS: CA 125 259 U/mL (0-35)
[2024-12-29 14:11] VITALS: BMI 23.3
--- NOTE | 2025-01-03 20:27 | W.CON.GYNONC ---
Chief Complaint
-
Pelvic mass, Ovary Ca
History of Present Illness
69�yr�old��menopausal�white�female�referred�to�us�for�a�right�pelvic�mass.�She�states�in�early�fall�started�to�have�increased
bloating�and�pelvic�pressure�but�did�not�start�to�have�right�sided�pain�until�early�November.�The�pain�worsen�while�on�vacation�where
she�was�doing�a�lot�of�walking�and�thought�she�may�have�pelvic�prolapse�She�saw�her�primary�for�the�pain�who�ordered�a�ct�scan and�saw�her�ob gyn physician assistant�who�did�the�pap�and�exam�and�felt�the�mass.�She�did�proceed�to�have�the�Ct�Scan�scan�which�shows�a�solid
cystic�mass�arising�from�the�rt�adnexa�measuring�12.1x12.8x8�cm�,�with�a�small�amount�of�fluid�and�soft�tissue�thickening�along the�margin�of�the�liver.� CA125�Yash��wa34
She�denies�any�vagina�bleeding,�denies�any�weight�loss,�urinary�problems�other�pressure�and�just�recently�started�to�have�increase pain�with�bowel�movements�but�no�difficulties�with�them.�
This�patient�returns�back�to�the�office�today�she�has�completed�3�cycles�of�chemotherapy�with�Taxol�carboplatin�and�bevacizumab. last cycle cycle�of�chemotherapy�on�May�22 without Soraida. Of note she had dose of chemo back in Jul but then stopped for a
while.
�She�is�feeling�increasingly�more�uncomfortable�because�of abdominal�distention.�At�the�last�checkup�in�interventional�radiology�there�was�not�enough�fluid�for�paracentesis.�She�continues�to
eat,�overall�compared�to�last�year�she�has�lost�about�10�pounds.�She�has�acute�abdominal�pain�after�administration�of chemotherapy�and�bevacizumab,�she�attributes�it�to�bevacizumab�given�her�own�research�and�investigation.�She�continues�to�have
reasonably�normal�bowel�function.
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
PSH:�None
Screening tests: colonoscopy�2021 , EGD, colonoscopy Jul 2024 wnl
Family�hx��PGM��breast�CA,�PGF��stomach�ca� social���current�nonsmoker�stopped�smoking�1985,�occasional�alcohol�
,�works�part�time�as�Nurse
Meds:
coenzyme�Q10�(ubiquinol)�100 mg�capsule 07/06/2024 0 Collanex�100�%�topical�powder 07/06/2024 0 Y dicyclomine�10�mg�capsule 08/17/2024 30 0 1�PO�Q6h�prn�gas�pains Y Ferretts�IPS�40�mg/15�mL�oral liquid 07/31/2024 1 0 Take�5�15�cc�PO�every�other�,
with�vit�C�or�orange�juice Fish�Oil�900�mg�360�mg�455 mg�1,000�mg�capsule 07/06/2024 0 garlic�100�mg�tablet 07/06/2024 0 Y lactulose�10�gram/15�mL�oral solution 08/17/2024 300 1 Take�10g/15cc�PO�Q2h�until�BM. Y lidocaine�prilocaine�2.5�%�2.5
%�topical�cream 08/13/2024 1 2 Apply�a�quarter�sixed�amount�to the�PAC�site�one�hour�prior�to treatment Y lorazepam�0.5�mg�tablet 08/20/2024 30 2 1�PO�Q6h�PRN�nausea Multiple�Vitamins�oral 07/06/2024 0 [place]�3�6�9�1,200�mg�capsule 07/06
[place]�3�6�9�1,200�mg�capsule 07/06/2024 0 Y
prochlorperazine�maleate�10 mg�tablet 08/13/2024 30 2 1�tablet�every�6�8�hours�by�mouth as�needed�for�nausea�and/or vomiting Y tramadol�25�mg�tablet 10/28/2024 30 0 1�p.o�Q6�hrs�PRN�pain Y
tramadol�50�mg�tablet 11/02/2024 60 0 50�mg�every�4�to�6�hours�as needed�for�pain
vitamin�B�complex�oral 07/06/2024 0
Vitamin�C�1,000�mg�tablet
Vitamin�D3�50�mcg�(2,000�unit) tablet 07/06/2024 0
Zinc�15�66�mg�tablet 07/06/2024 0 30�nmg
Medical History
Allergies
Allergies reflect when allergies were last updated in [facility].
erythromycin base Allergy (Verified 12/29/24 15:03)
Nausea
Physical Exam
Physical Exam
Pelvic�Examination:
External�normal�labia,�urethra,�anus.�
Vagina:�Normal�mucosa.�
Cervix:�normal�appearance,�no�discharge.�
Uterus:�normal�size.�
large�mass�in�central�pelvis,�fixed�on�right�pelvic�side�wall,�suspect�ovary�mass,�tender�to�palpation RVE:�anterior�aspect�of�rectum�abuts�the�pelvic�mass,�and�again�is�also�tender�to�palpation
General:�Well�developed,�well�nourished�patient.�In�no�acute�distress.
Neck:�No�thyromegaly.�No�cervical�lymphadenopathy. Lungs:�Clear�to�auscultation.�Good�air�movement�bilaterally.
Cardiac:�Regular�rate.�Regular�rhythm.�No�murmurs�appreciated. Abdomen:�Abdomen�is�soft.�Non�tender�to�palpation.�Non�distended.�Ascites�is�present.Mass�palpated:�large�mass�to umbilicus.�No�hepatomegaly. Extremities:�No�edema.
Skin:Non�jaundiced.�No�petechia.�No�purpura.
Neurologic:�Speech�is�fluent.�Normal�gait�and�station.�Cranial�nerves�intact.
Results
-
12/29/24 10:42
12/29/24 10:42
[facility]
[address] [place] [id number]
[phone]
Patient Name: JAUN AL
: 1955
Unit Number: [id number]
Age/Sex: 69/F
Patient
Location: RAD
Order Provider: Ar Motley MD
Exam Service Date: 12/03/24

Diagnostic Imaging Report
SignedOrder #:[id number]
Exams: CT Chest/abd/pel W Iv Cont
Contrast-enhanced CT of the chest, abdomen, and pelvis dated 12/03/2024 7:15 AM.
Indication: Ovarian cancer.
Comparison: CT abdomen/pelvis 08/01/2024, PET/CT 07/24/2024 .
Technique: After the injection of intravenous nonionic iodinated contrast, axial CT of the chest, abdomen, and pelvis was performed from the lung apices to the inferior osseous pelvis. 2-D reformats were obtained. Automatic exposure control
radiation dose reduction technology was utilized.
Findings:
Chest: No pulmonary nodules, areas of airspace disease, pleural effusions, pericardial effusions or enlarged lymph nodes in the thorax.
Abdomen/pelvis: Stable hepatic cysts and calcification. Stable simple left renal cyst. New moderate left hydronephrosis likely secondary to mass effect on the left ureter. The spleen, right kidney, adrenal glands and pancreas are within normal
limits. Gallbladder present. No abdominal aortic aneurysm.
Moderate volume of abdominopelvic ascites, improved from prior. No enlarged lymph nodes or free air. Bowel is without evidence of obstruction or adjacent inflammatory changes. Bladder unremarkable.
Redemonstration of a large mixed solid and cystic pelvic mass with increased enhancing solid components compared to prior, overall measuring up to approximately 17.5 x 22.3 x 19.8 cm in greatest dimensions, increased from prior.
Redemonstration of omental/peritoneal stranding in the left upper quadrant suggesting peritoneal carcinomatosis (series 301, image 29), similar to prior.
No suspicious osseous lesions.
IMPRESSION:
1. Continuing enlargement of large pelvic mass/neoplasm.
2. New moderate left hydronephrosis likely secondary to associated mass effect on the left ureter.
3. Moderate volume of abdominopelvic ascites. Similar probable peritoneal carcinomatosis.
Electronically signed by Rm Starr, 12/03/2024 1:12 PM
[facility] Dose Report: Up-to-date CT equipment and radiation dose reduction techniques were employed. CTDIvol: 4.9 - 9.3 mGy. DLP: 546 mGy-cm.
Dictated By: Rm Starr MD
Dictated Date & Time: 12/03/24 1304
Impression / Plan
-
69 yo WF with probable ovary ca now s.p neoadjuvant chemo
There�does�appear�to�be�significant�improvement�inthe�volume�of�ascites�now�considered�moderate.�I�do�not�feel�that�there�is�enough�fluid�to�be�drained.�There�is�continued�peritoneal
stranding�in�the�left�upper�quadrant�suggestive�of�some�omental�involvement.�I�do�not�see�any�additional�disease�in�the�diaphragm. She�does�have�some�right�subcostal�margin
I�am�proposing�proceeding�with�definitive�surgery�to�include�exploratory�laparotomy�through�a�midline�vertical�skin�incision�resection
of�the�pelvic�mass,�total�abdominal�hysterectomy�bilateral�salpingo�oophorectomy�omentectomy�she�will�likely�require�bowel resection�and�I�suspect�she�will�need�sigmoid�or�descending�colon�resection.�She�has�had�prior�EGD�and�colonoscopy�and�there
was�no�abnormal�tumor�in�the�lumen.�I�have�asked�her�to�see�Dr.�Christopher�Juan Miguel�in�colorectal�surgery�and�I�will�request
colorectal�surgery�to�be�available�to�assist�with�that�portion�of�the�surgery.�She�would�like�to�avoid�lymphadenectomy,�I�told�her�that
we�will�explore�the�retroperitoneal�spaces�and�if�there�is�any�enlarged�lymph�nodes�will�be�removed�at�the�same�time.�Goal�of�the surgery�is�to�leave�her�with�no�or�minimal�residual�disease�if�at�all�possible.
We�discussed�risk�of�surgery�to�include�infection�bleeding�injury�to�adjacent�organs�DVT�pulmonary�embolism�and�cardiovascular complications�and�potentially�need�for�additional�surgery�or�chemotherapy..
She�understands�that�based�on�the�final�pathology�there�may�be�modification�in�her�chemotherapy�regimen�postop. She�will�require�inpatient�hospital�stay�approximately�5�to�7�days�until�she�has�recuperated�and�has�resumed�her�bowel�function.
Bowel�prep�will�be�done�as�per�colorectal�specifications�and�recommendations
[2025-01-05] VITALS (17 sets, daily range): BP systolic 116–145; BP diastolic 63–99; BMI 23.3
[2025-01-05] MEDS: NEURONTIN 300 MG PO (11:42)
[2025-01-05] MEDS: CELEBREX 200 MG PO (11:42)
[2025-01-05] MEDS: TYLENOL 1000 MG PO (11:42)
[2025-01-05] MEDS: HEPARIN 5000 UNITS SC (12:48)
[2025-01-05 15:17] LABS: B.E. - POC -1.1 mmol/L; Glucose - POC 96 mg/dl (70-99); HCO3 - POC 24 mmol/L (21-28); Hematocrit - POC 17 % PCV (37-47); Hemodilution- POC Yes; Hemoglobin Calculated - POC 5.9; Ionized Calcium - POC 1.03 mmol/L (1.15-1.33); Lactate - POC 0.72 mmol/L (0.36-0.75); O2 Saturation %Calculated-POC 99.4 % (94-98); PCO2 - POC 41 mmHg (35-48); PO2 - POC 160 mmHg (83-108); Sodium - POC 140 mmol/L (136-145); Specimen Type - POC Arterial; pH - POC 7.38 (7.35-7.45)
[2025-01-05 16:31] LABS: B.E. - POC -4.4 mmol/L; Glucose - POC 131 mg/dl (70-99); HCO3 - POC 20 mmol/L (21-28); Hematocrit - POC 31 % PCV (37-47); Hemodilution- POC Yes; Hemoglobin Calculated - POC 10.6; Ionized Calcium - POC 1.18 mmol/L (1.15-1.33); Lactate - POC 0.67 mmol/L (0.36-0.75); O2 Saturation %Calculated-POC 99.7 % (94-98); PCO2 - POC 36 mmHg (35-48); PO2 - POC 210 mmHg (83-108); Potassium - POC 4.5 mmol/L (3.5-5.1); Sodium - POC 139 mmol/L (136-145); Specimen Type - POC Arterial; pH - POC 7.37 (7.35-7.45)
--- NOTE | 2025-01-05 16:37 | W.IMMPOSTOP ---
Surgical Immed Post Op Note
-
Primary Surgeon: Ortiz Bullard MD
Assisting Surgeon: Ar Motley MD, LAVONNE Monsalve
Pre-op Diagnosis: Pelvic mass
Post-op Diagnosis: Same
Procedure Performed: Sigmoid resection with primary anastomosis, and takedown of splenic flexure during an exploratory laparotomy, total hysterectomy, omentectomy, and appendectomy by Dr. Motley
Anesthesia Type: GET
Specimen / Cultures: Sigmoid colon (open end is proximal)
Estimated Blood Loss: 10cc from the colectomy
Complications: None
Operative Findings: Large left adnexal carcinoma with peritoneal involvement of the sigmoid colon (no direct tumor invasion)
28mm EEA
Normal leak test
--- NOTE | 2025-01-05 17:18 | W.IMMPOSTOP ---
Surgical Immed Post Op Note
-
Primary Surgeon: Ar Motley
Assisting Surgeon: Aristides Early PA-C
Pre-op Diagnosis: Advanced ovarian cancer, status post neoadjuvant chemotherapy
Post-op Diagnosis: Same
Procedure Performed:
Exploratory laparotomy, radical tumor debulking including total abdominal hysterectomy, bilateral salpingo-oophorectomy, infracolic and gastrocolic omentectomy, multiple peritoneal resection, common iliac lymph node excision bilateral [id number]
Appendectomy
Sigmoid resection with colorectal anastomosis
Mobilization of splenic flexure
Anesthesia Type: General Endotracheal intubation
Specimen / Cultures: Left tube and ovary, uterus and cervix with right ovary, appendix, sigmoid colon with pelvic peritoneum, right paracolic gutter, right and left common iliac lymph nodes, omentum, bladder dome implant, right diaphragmatic
implant, right pelvic peritoneum, right anterior pelvic peritoneum
Estimated Blood Loss: 1000 cc
Complications: None
Operative Findings: There was approximately 1000 cc ascites in the abdomen, there was a large tumor arising from the left ovary mostly cystic, with extension into the mesentery of portion of sigmoid colon and its serosa, there were extensive
vascular collateral from posterior cul-de-sac peritoneum right and left pelvic peritoneum and part of the tumor was adherent to cecum and mesentery of ileocecal region. Right tube and ovary was atrophic, there was evidence of treated tumor
involving peritoneum of the pelvis anterior cul-de-sac. There was evidence of treated tumor right diaphragm, omentum was without any evidence of disease stomach was unremarkable liver and spleen are without any evidence of tumor grossly hemangiomas
noted in the anterior right lobe of liver, pelvis examined from ligament of Treitz down to ileocecal valve and it does not have any tumor implants at this point on its, at the completion of the surgery descending colon anastomosis to the rectum was
performed. There was 0 cm residual gross disease visible
[2025-01-05] MEDS: LOVENOX SC (18:00)
[2025-01-05 18:06] LABS: Hematocrit 34.8 % (37.0-47.0); Hemoglobin 11.8 g/dL (12.0-16.0); Mean Corp Hgb Conc. 33.9 g/dL (33.0-37.0); Mean Corpuscular Hgb 26.6 pg (27.0-31.0); Mean Corpuscular Volume 78.4 fL (81.0-99.0); Mean Platelet Volume 9.7 fL (7.4-10.4); Platelet Count 152 10^3/uL (130-400); Red Blood Cell Count 4.44 10^6/uL (4.20-5.40); Red Cell Dist. Width 19.7 % (11.5-14.5); White Blood Cell Count 5.9 10^3/uL (4.8-10.8)
[2025-01-05] MEDS: DILAUDID 0.5 MG IV (18:08)
--- NOTE | 2025-01-05 18:15 | CON.HOSP ---
Family Physician
-
Family Physician: Donnell Taylor PA-C
Chief Complaint
-
medical consult
History of Present Illness
71-year-old with a history for advanced ovarian cancer on chemotherapy admitting s/p underwent ex lap, radical tumor debulking including total abdominal hysterectomy, bilateral salpingo-oophorectomy, infracolic and gastrocolic omentectomy, multiple
peritoneal resection,, lymph node excision, appendectomy, sigmoid resection with colorectal anastomosis and mobilization of splenic flexure. During the procedure patient lost 1 L of blood for which she received 4 units PRBCs and 2 units of FFP.
Patient at present denied any headache or dizzy. Patient denied any chest pain or short of breath. Patient has Berg in place. Patient also has NG tube.
Admitting for further management
Medical History
Past Medical History
Past Medical History: Reports Other
Additional Past Medical History:
Anemia
Right foot bunion
Osteoporosis
Hypertension
Past Surgical History: Reports Other
Additional Past Surgical History:
Bunionectomy
Social History
Tobacco: Former Smoker
Alcohol: None
Personal:
Living: With Family
Family History
Family History: Reviewed & Not Pertinent
Allergies / Home Medications
Allergies reflects when Allergies were last updated in [facility].
Home Medications with original date entered in [facility]
Allergy/Medication List:
Allergies
Allergy/AdvReac Type Severity Reaction Status Date / Time
erythromycin base Allergy Nausea Verified 01/05/25 11:16
Home Medications
multivitamin 1 tab PO Q48H 07/16/24
ascorbic acid (vitamin C) 1,000 mg tablet,extended release (Vitamin C ER) 1,000 mg PO Q12H 07/28/24
cholecalciferol (vitamin D3) 50 mcg (2,000 unit) tablet (Vitamin D3) 50 mcg PO DAILY 07/28/24
alpha lipoic acid 600 mg capsule 600 mg PO BID 12/21/24
Garcinia Cambogia 1,000 mg PO DAILY 12/29/24
Grape Seed Fowler 600 mg PO DAILY 12/29/24
Lactobacillus acidophilus 10 billion cell capsule (Probiotic) 50,000 mmu cells PO DAILY 12/29/24
Magnesium Complex 675 mg PO DAILY 12/29/24
Oregano And Black Seed Oil 7,500 mg PO DAILY 12/29/24
berberine chloride 500 mg capsule 500 mg PO BID 12/29/24
garlic 500 mg capsule 500 mg PO DAILY 12/29/24
milk thistle 500 mg capsule 500 mg PO DAILY 12/29/24
quercetin 30 mg PO DAILY 12/29/24
red yeast rice 600 mg tablet 1,200 mg PO BID 12/29/24
tramadol 50 mg tablet 50 mg PO Q6H PRN PAIN 12/29/24
turmeric root extract 500 mg tablet 500 mg PO DAILY 12/29/24
zinc acetate 50 mg (zinc) capsule 50 mg PO DAILY 12/29/24
lecithin 1,200 mg capsule 1,200 mg PO DAILY 01/01/25
psyllium seed (sugar) oral powder 1 tbsp PO DAILY 01/01/25
vitamin E 268 mg (400 unit) capsule 268 mg PO DAILY 01/01/25
docusate sodium 100 mg capsule (Colace) 100 mg PO DAILY 01/05/25
Review of Systems
-
Constitutional: Reports No Symptoms
EENT: Reports No Symptoms
Respiratory: Reports No Symptoms
Cardiac: Reports No Symptoms
Abdomen/GI: Reports No Symptoms
: Reports No Symptoms
Musculoskeletal: Reports No Symptoms
Skin: Reports No Symptoms
Neurological: Reports No Symptoms
Endocrine: Reports No Symptoms
Hematologic/Lymphatic: Reports No Symptoms
Psych: Reports No Symptoms
Physical Exam
Vital Signs
Vital Signs
Temp Pulse Resp BP Pulse Ox
97.5 F 80 12 143/76 100
01/05/25 17:17 01/05/25 17:45 01/05/25 17:45 01/05/25 17:45 01/05/25 17:45
Physical Exam
General: Well Developed, Well Nourished and No Apparent Distress
HEENT: Normocephalic, Moist Mucous Membranes and Atraumatic
Respiratory: Clear
Cardiac: S1/S2 and Regular Rhythm; Negative Murmur or Rub
GI: Soft, Non Tender, Non Distended and Normal Bowel Sounds
Rectal: Deferred by Provider
Genito-urinary: Berg Catheter
Musculoskeletal: No Clubbing, No Cyanosis and No Edema
Skin: Rash and Other (Abdominal dressing clean dry and)
Neuro: Nonfocal/Grossly Intact
Laboratory Results
-
Laboratory Results
01/05/25 17:52
PT 14.2 Sec (11.4-14.6) 12/29/24 10:42
INR 1.07 12/29/24 10:42
APTT 34.4 Sec (23.4-35.0) 12/29/24 10:42
Total Bilirubin 0.5 mg/dl (0.2-1.3) 12/29/24 10:42
AST 53 U/L (14-36) H 12/29/24 10:42
ALT 13 U/L (0-35) 12/29/24 10:42
Alkaline Phosphatase 43 U/L (38-126) 12/29/24 10:42
Data Reviewed
-
Lab Data: Labs Reviewed
Impression / Plan
-
# Advanced ovarian mass
-received chemo as outpatient
-she underwent today MICHELLE BSO Omentectomy tumor debulking, sigmoid resection and appendectomy
-patient received 4 units of PRBCS, two unit of FFP
-NGT tube in place
-keep patient NPO
-Berg in place
- Pain management as per primary
- Antibiotics as per primary
- Hemoglobin 11.8
#thallsemia
#essentil HTN
#DVT prophylaxis
- Lovenox subcu
#CODE status
-full code
[2025-01-05] MEDS: ZOFRAN 4 MG IV (18:20)
[2025-01-05 18:22] LABS: ALT (SGPT) 14 U/L (0-35); AST (SGOT) 37 U/L (14-36); Albumin 2.8 g/dl (3.5-5.0); Alkaline Phosphatase 41 U/L (38-126); Blood Urea Nitrogen 10 mg/dl (7-17); Carbon Dioxide 21 mmol/L (22-30); Chloride 108 mmol/L (98-107); Estimated Creatinine Clearance 66 ml/min; Glucose 132 mg/dl (70-99); Magnesium 1.9 mg/dl (1.6-2.3); Potassium 4.2 mmol/L (3.5-5.1); Sodium 134 mmol/L (135-145); Total Bilirubin 2.3 mg/dl (0.2-1.3); Total Protein 4.9 g/dl (6.3-8.2); eGFR > 60.00
[2025-01-05] MEDS: NSS 1000 IV (18:33)
[2025-01-05] MEDS: DILAUDID PCA 30 IV (18:35)
--- NOTE | 2025-01-05 18:46 | W.PN.UPDATE ---
Update Note
Progress Note Update
This is an addendum to H&P written by Elba Del Angel 01/05/2025. �Patient seen and examined independently with NETWORK OPERATIONS MANAGER.
69-year-old female past medical history of ovarian cancer status post neoadjuvant chemotherapy, hypertension, thalassemia, anemia presenting for exploratory laparotomy, radical ovarian tumor debulking, �total abdominal hysterectomy, bilateral
salpingo-oophorectomy, infracolic and gastrocolic omentectomy, multiple peritoneal resection and common iliac lymph node excision, appendectomy, sigmoid resection with colorectal anastomosis, mobilization of splenic flexure.
During the procedure she lost 1000 cc of blood. �300 cc urine output. �Patient received 4 units of blood, 2 units of FFP.
NG tube was placed. �Berg catheter placed.
Hemoglobin currently 11.8. �Patient hemodynamically stable. �CMP pending. �Patient currently NPO.
[2025-01-05 19:11] LABS: APTT 34.1 Sec (23.4-35.0)
[2025-01-05] MEDS: COMPAZINE 5 MG IV (19:59)
[2025-01-06] MEDS: NSS 1000 IV ×3 (01:55→20:11)
[2025-01-06 03:00] VITALS: BP 147/83
[2025-01-06 05:18] LABS: % Basophils 0.2 % (0-2); % Immature Granulocytes 0.3 % (0-0.5); % Lymphocytes 14.5 % (20.5-51.1); % Monocytes 6.9 % (1.7-9.3); % Neutrophils 78.1 % (42.2-75.2); Absolute Lymphocytes 0.9 10^3/uL (1.2-3.4); Absolute Monocytes 0.5 10^3/uL (0.1-0.6); Absolute Neutrophils 5.1 10^3/uL (1.4-6.5); Hematocrit 29.2 % (37.0-47.0); Hemoglobin 10.4 g/dL (12.0-16.0); Mean Corp Hgb Conc. 35.6 g/dL (33.0-37.0); Mean Corpuscular Hgb 27.2 pg (27.0-31.0); Mean Corpuscular Volume 76.2 fL (81.0-99.0); Mean Platelet Volume 8.8 fL (7.4-10.4); Nucleated Red Blood Cells % 0 %; Platelet Count 149 10^3/uL (130-400); Red Blood Cell Count 3.83 10^6/uL (4.20-5.40); Red Cell Dist. Width 18.6 % (11.5-14.5); White Blood Cell Count 6.5 10^3/uL (4.8-10.8)
--- NOTE | 2025-01-06 05:18 | W.PN.GYNONC ---
Today's Communication
-
N/A
Impression / Plan
-
69 yo WF with ovary ca Left s/p neoadjuvant chemo now POD 1 MICHELLE BSO, Oment, LAR and appy for tumor cytoreduction
she looks well,
consider dc NGT, once completed can have po meds
law to be in place x 48 hrs due to extensive dissection of peritoneum around the bladder
follow up on labs
appreciate CRS and hospitalist input
GI ppx protonix
VTE ppx with lovenox
OOB, ambulate ti chair
Ar Motley MD
Salesman/Owner Oncology
Subjective / Interval History
-
POD1 s/p MICHELLE BSO, Oment, LAR, Appy for ovary ca
look well, had abdominal pain as expected, slept on and off
no bowel function, NGT is irritating
Objective Data
-
Lab Results:
01/05/25 17:52
Physical Exam
Vital Signs / I&O
Vitals
Temp Pulse Resp BP Pulse Ox
97.7 F 66 16 147/83 99
01/06/25 03:00 01/06/25 03:00 01/06/25 03:00 01/06/25 03:00 01/06/25 03:00
I&O
01/03/25 01/04/25 01/05/25 01/06/25
06:59 06:59 06:59 06:59
Intake Total 200 / 200
Output Total 700 / 700
Balance -500 / -500
Physical Exam
General: No Apparent Distress and Comfortable
Respiratory: Clear and Non Labored Respirations
Cardiac: S1/S2 and Regular Rhythm
GI: Soft, Non Tender and Non Distended
Neuro: Awake, AO x 3 and No Motor Deficits
Psych: Calm and Intact Judgement
--- NOTE | 2025-01-06 06:10 | DOWNTIME ---
Addendum entered by Antonia Rodríguez RN 01/06/25 14:08:
Correction to downtime 01/06/2025 from 0100 to 01/06/25 at 0415.
Original Note:
There was a [employer] Client Enterprise Manager Downtime on 01/05/2025 from 0100 to 01/06/2025 at 0415. Downtime documentation of patient's care, including medication administrations, has been reconciled in the electronic record per guidelines. Refer to the
patient's paper chart under the miscellaneous tab to see printed paper medication records and downtime forms.
[2025-01-06 07:40] VITALS: BP 133/76
[2025-01-06] MEDS: PROTONIX IV 40 MG IV (09:05)
[2025-01-06] MEDS: NSS (PRESERVATIVE FREE) 10 ML IV (09:05)
[2025-01-06] MEDS: MOTRIN 600 MG PO ×4 (09:06→21:43)
[2025-01-06] MEDS: TYLENOL 650 MG PO ×4 (09:06→21:43)
--- NOTE | 2025-01-06 09:47 | W.PN.CRS1 ---
Today's Communication / Plan
-
NPO until flatus
Assessment/Plan
-
POD#1 Sigmoid resection with primary anastomosis, and takedown of splenic flexure during an exploratory laparotomy, total hysterectomy, omentectomy, and appendectomy by Dr. Motley
WBC 6.5. Hgb 10.4.
-Maintain NPO until flatus.
-Continue IVFs
-OOB as tolerated
-Lovenox for DVT prophylaxis.
-OR pathology pending
-Pain control: Dilaudid BRUSH MATERIAL PREPARER, motrin, toradol, acetaminophen
Subjective Data
Procedure
01/05- Sigmoid resection with primary anastomosis, and takedown of splenic flexure during an exploratory laparotomy, total hysterectomy, omentectomy, and appendectomy by Dr. Motley
Subjective Data
Date of Service: January 06, 2025
Patient states she does not have any gas or bowel movements yet. Her pain is controlled. She is hungry.
Objective Data
-
Vital Signs
Temp Pulse Resp BP Pulse Ox
99.2 F 86 16 133/76 94
01/06/25 07:40 01/06/25 07:40 01/06/25 08:00 01/06/25 07:40 01/06/25 08:00
Intake & Output
01/05/25 01/06/25 01/07/25
06:59 06:59 06:59
Intake Total 1900 / 1900
Output Total 1500 / 1500
Balance 400 / 400
Intake:
Oral fluids 200 / 200
IV fluids (Total) 1700 / 1700
normosol 200 / 200
Output:
Gastrointestinal tube output ( 250 / 250
Total)
[place] Sump 250 / 250
Urine, Berg 1250 / 1250
Lab Results
01/06/25 04:47
01/05/25 17:52
Physical Exam
-
General: No Acute Distress and AOx3
Abdomen: Soft, Non Distended and Tender (mild around incisions)
Skin: Warm and Dry
--- NOTE | 2025-01-06 11:01 | CM ---
Reviewed the chart notes and spoke with the patient and her son at the bedside. Patient resides with her spouse in a two story home with no steps to enter. The patient reports no DME/VN/SNF in the past. The patient confirmed her pharmacy of
choice is the [facility] Yonis Jade. Patient currently NPO. CM continues to be available to patient/family and is monitoring medical plan for needs at discharge.
Plan: Discharge plans will depend on the patient's progress.
[2025-01-06 11:40] VITALS: BP 120/63
[2025-01-06 15:50] VITALS: BP 133/83
--- NOTE | 2025-01-06 16:17 | W.PN.HOSP.TC ---
Today's Communication/Plan
-
OOB
Ambulate
Pain control
IVF
Assessment / Plan
Assessment / Plan
Pleasant 69-year-old female with history of ovarian cancer S/P exploratory laparotomy, radical tumor debulking including total abdominal hysterectomy BSO, infraglottic and gastrocolic omentectomy and multiple peritoneal resection, lymph node
dissection, appendectomy, sigmoid resection and colorectal anastomosis and mobilization of the splenic flexure. Patient lost about 1 L of blood and received 4 units of PRBCs and 2 units of FFP's .
Ovarian cancer was diagnosed in May 2024 when she had pelvic pressure and found a right adnexal mass 12.1 into 12.8 into 8 cm. CA125 in July 01, 2024 was 134. Patient received 1 cycle of chemotherapy 08/14/2024 and had a lot of side
effects she saw alternate oriental medicine practitioner and started with supplements. She was not feeling better and went back and chemotherapy. She had another chemotherapy with Taxol, carboplatin and bevacizumab . Had 4 cycles so far and the
last cycle was end of November 2024.
Chest x-ray-mild right pleural effusion.
On examination awake alert oriented pleasant
Cardiovascular system S1-S2 appreciated
Chest clear to auscultation
Abdomen midline incision
# Advanced ovarian mass
MICHELLE, BSO, omentectomy, tumor debulking, sigmoid resection, infraglottic and gastrocolic omentectomy, peritoneal resection, lymph node resection, appendectomy, sigmoid resection, colorectal anastomosis and mobilization of the splenic flexure (
/)
Status post 4 units of PRBC and 2 units FFP's
NG tube out . Berg in place
CA 125 - 259
Keep n.p.o. until passes flatus/colorectal surgery decides to advance
Pain management-Dilaudid, ketorolac ordered
Follow hemoglobin
# Malignant ascites with paracentesis 11 times (01/01/2025, 12/21/2024, 12/08/2024, 11/18/2024, 10/26/2024, 10/16/2024, 10/09/2024, 09/28/2024, 08/17/2024, 08/10/2024, 08/04/2024)
# Hypertension-follow blood pressure postoperatively. Not on meds as OP.
# Anemia multifactorial likely secondary to baseline thalassemia, acute blood loss anemia postoperative and also anemia of chronic disease
# Thalassemia
# Hypoalbuminemia
# Ex-smoker quit in 1985
# DVT prophylaxis-Lovenox
# Full code
Discussed with nursing at bedside
Part of this note was created using voice recognition system. Occasional wrong word or��sound alike� substitutions may have inadvertently occurred due to the inherent limitations of voice recognition software. If noted kindly bring it to my
attention for correction.
Anticipated Discharge: 24 - 48 hours
Subjective/Interval History
-
Date of Service: January 06, 2025
Objective Data
-
Labs:
Laboratory Results
01/06/25
04:47
WBC 6.5
Hgb 10.4 L
Hct 29.2 L
Plt Count 149
Vital Signs:
Vital Signs
Temp Pulse Resp BP Pulse Ox
98.2 F 77 16 120/63 95
01/06/25 11:40 01/06/25 11:40 01/06/25 12:00 01/06/25 11:40 01/06/25 12:00
I&O
01/05/25 01/06/25 01/07/25
06:59 06:59 06:59
Intake Total 1900 / 1900
Output Total 1500 / 1500 275 / 275
Balance 400 / 400 -275 / -275
[2025-01-06] MEDS: DILAUDID 0.5 MG IV (16:37)
[2025-01-06] MEDS: LOVENOX 40 MG SC (17:52)
--- NOTE | 2025-01-06 20:33 | W.PN.UPDATE ---
Update Note
Progress Note Update
Patient was seen in late afternoon
she has been up and ambulating 3 times
has abdominal pain, wanted binder, ordered
YOUTH LEADER was discontinued, she will take dilaudid 0.5 q 4 hrs prn
NGT was removed this am, she is on tylenol/motrin
Urine out put is good, law to be removed tomorrow
will reduce IV fluids to 40 cc/hr to prevent hypervolemia/edema
Lbas reviewed CBC stable Hgb,
will check cbc, cmp in AM
Ar Motley MD
[facility]
[2025-01-06 23:25] VITALS: BP 126/78
[2025-01-07 04:59] LABS: % Basophils 0.5 % (0-2); % Immature Granulocytes 0.3 % (0-0.5); % Monocytes 7.3 % (1.7-9.3); % Neutrophils 64.9 % (42.2-75.2); Absolute Eosinophils 0.1 10^3/uL (0-0.7); Absolute Lymphocytes 1.5 10^3/uL (1.2-3.4); Absolute Monocytes 0.4 10^3/uL (0.1-0.6); Absolute Neutrophils 3.7 10^3/uL (1.4-6.5); Hematocrit 26.7 % (37.0-47.0); Hemoglobin 9.1 g/dL (12.0-16.0); Mean Corp Hgb Conc. 34.1 g/dL (33.0-37.0); Mean Corpuscular Hgb 26.2 pg (27.0-31.0); Mean Corpuscular Volume 76.9 fL (81.0-99.0); Nucleated Red Blood Cells % 0 %; Platelet Count 180 10^3/uL (130-400); Red Blood Cell Count 3.47 10^6/uL (4.20-5.40); Red Cell Dist. Width 19.7 % (11.5-14.5); White Blood Cell Count 5.7 10^3/uL (4.8-10.8)
[2025-01-07 05:17] LABS: ALT (SGPT) < 10 U/L (0-35); AST (SGOT) 25 U/L (14-36); Albumin 2.2 g/dl (3.5-5.0); Alkaline Phosphatase 38 U/L (38-126); Blood Urea Nitrogen 6 mg/dl (7-17); Calcium 7.6 mg/dl (8.4-10.2); Carbon Dioxide 25 mmol/L (22-30); Chloride 110 mmol/L (98-107); Estimated Creatinine Clearance 66 ml/min; Glucose 65 mg/dl (70-99); Magnesium 1.8 mg/dl (1.6-2.3); Potassium 3.3 mmol/L (3.5-5.1); Sodium 137 mmol/L (135-145); Total Bilirubin 1.1 mg/dl (0.2-1.3); Total Protein 4.1 g/dl (6.3-8.2); eGFR > 60.00
[2025-01-07] MEDS: TORADOL 15 MG IV ×3 (05:37→21:02)
[2025-01-07] MEDS: KCL 270 MEQ IV (06:14)
[2025-01-07 07:28] VITALS: BP 145/70
[2025-01-07] MEDS: TYLENOL 650 MG PO ×3 (08:59→17:00)
[2025-01-07] MEDS: PROTONIX IV 40 MG IV (09:00)
[2025-01-07] MEDS: NSS (PRESERVATIVE FREE) 10 ML IV (09:00)
[2025-01-07] MEDS: MOTRIN PO (09:01)
[2025-01-07] MEDS: DILAUDID 0.5 MG IV ×3 (09:17→21:04)
--- NOTE | 2025-01-07 10:12 | W.PN.HOSP.TC ---
Today's Communication/Plan
-
Pain control
Encourage Out of bed
Await return of bowel function
Assessment / Plan
Assessment / Plan
Pleasant 69-year-old female with history of ovarian cancer S/P exploratory laparotomy, radical tumor debulking including total abdominal hysterectomy BSO, infraglottic and gastrocolic omentectomy and multiple peritoneal resection, lymph node
dissection, appendectomy, sigmoid resection and colorectal anastomosis and mobilization of the splenic flexure. Patient lost about 1 L of blood and received 4 units of PRBCs and 2 units of FFP's .
Ovarian cancer was diagnosed in May 2024 when she had pelvic pressure and found a right adnexal mass 12.1 into 12.8 into 8 cm. CA125 in July 01, 2024 was 134. Patient received 1 cycle of chemotherapy 08/14/2024 and had a lot of side
effects she saw alternate oriental medicine practitioner and started with supplements. She was not feeling better and went back and chemotherapy. She had another chemotherapy with Taxol, carboplatin and bevacizumab . Had 4 cycles so far and the
last cycle was end of November 2024.
Chest x-ray-mild right pleural effusion.
On examination awake alert oriented pleasant
Cardiovascular system S1-S2 appreciated
Chest clear to auscultation
Abdomen midline incision, sluggish high-pitched bowel sounds
midline incision with mild shadowing
# Advanced ovarian mass
MICHELLE, BSO, omentectomy, tumor debulking, sigmoid resection, infraglottic and gastrocolic omentectomy, peritoneal resection, lymph node resection, appendectomy, sigmoid resection, colorectal anastomosis and mobilization of the splenic flexure (
/)
Status post 4 units of PRBC and 2 units FFP's
NG tube out . Berg in place
CA 125 - 259
Keep n.p.o. until passes flatus/colorectal surgery decides to advance
Pain management-Dilaudid, ketorolac ordered
Follow hemoglobin
# Hypokalemia-replace
# Malignant ascites with paracentesis 11 times (01/01/2025, 12/21/2024, 12/08/2024, 11/18/2024, 10/26/2024, 10/16/2024, 10/09/2024, 09/28/2024, 08/17/2024, 08/10/2024, 08/04/2024)
# Hypertension-follow blood pressure postoperatively. Not on meds as OP.
# Anemia multifactorial likely secondary to baseline thalassemia, acute blood loss anemia postoperative and also anemia of chronic disease
# Thalassemia
# Hypoalbuminemia
# Ex-smoker quit in 1985
# DVT prophylaxis-Lovenox
# Full code
Discussed with nursing at bedside
Part of this note was created using voice recognition system. Occasional wrong word or��sound alike� substitutions may have inadvertently occurred due to the inherent limitations of voice recognition software. If noted kindly bring it to my
attention for correction.
Anticipated Discharge: 24 - 48 hours
Subjective/Interval History
-
Date of Service: January 07, 2025
Objective Data
-
Labs:
Laboratory Results
01/07/25
04:18
WBC 5.7
Hgb 9.1 L
Hct 26.7 L
Plt Count 180 D
Sodium 137
Potassium 3.3 L
Chloride 110 H
Carbon Dioxide 25
BUN 6 L
Creatinine 0.5 L
Glucose 65 L
Calcium 7.6 L
Total Bilirubin 1.1 D
AST 25
ALT < 10
Alkaline Phosphatase 38
Vital Signs:
Vital Signs
Temp Pulse Resp BP Pulse Ox
98.2 F 69 16 145/70 98
01/07/25 07:28 01/07/25 07:28 01/07/25 07:28 01/07/25 07:28 01/07/25 07:28
I&O
01/06/25 01/07/25 01/08/25
06:59 06:59 06:59
Intake Total 0 / 1900 2189 / 2189
Output Total 1500 / 1500 2024
Balance 400 / 400 165 / 165
--- NOTE | 2025-01-07 10:47 | W.PN.CRS1 ---
Today's Communication / Plan
-
clears
adjusted pain meds
Assessment/Plan
-
POD#2 Sigmoid resection with primary anastomosis, and takedown of splenic flexure during an exploratory laparotomy, total hysterectomy, omentectomy, and appendectomy by Dr. Motley
WBC 5.7, Hgb 9.1
-Advance diet to clears
-Continue IVFs until tolerating clears
-OOB as tolerated
-Lovenox for DVT prophylaxis.
-OR pathology pending
-Pain control: Dilaudid HOSPITAL RECEIVING CLERK, motrin, toradol (made standing), acetaminophen (increased frequency)
Subjective Data
Procedure
01/05- Sigmoid resection with primary anastomosis, and takedown of splenic flexure during an exploratory laparotomy, total hysterectomy, omentectomy, and appendectomy by Dr. Motley
Subjective Data
Date of Service: January 07, 2025
Patient states she has no nausea or vomiting. She is hungry. She is in a lot of pain still. She denies flatus but has burping.
Objective Data
-
Vital Signs
Temp Pulse Resp BP Pulse Ox
98.2 F 69 16 145/70 98
01/07/25 07:28 01/07/25 07:28 01/07/25 07:28 01/07/25 07:28 01/07/25 07:28
Intake & Output
01/06/25 01/07/25 01/08/25
06:59 06:59 06:59
Intake Total 1900 / 1900 2190 / 2190
Output Total 1500 / 1500 2024
Balance 400 / 400 165 / 165
Intake:
Oral fluids 200 / 200 210 / 210
IV fluids (Total) 1700 / 1700 1979 / 1979
normosol 200 / 200
Output:
Gastrointestinal tube output ( 250 / 250
Total)
Caspar Sump 250 / 250
Urine, Berg 1250 / 1250 2024
Other:
Number of approximated MODERATE 1
amounts of urine
Lab Results
01/07/25 04:18
01/07/25 04:18
Physical Exam
-
General: No Acute Distress and AOx3
Abdomen: Soft, Non Distended and Tender (around incision)
Wound: Dressing in Place
--- NOTE | 2025-01-07 11:01 | W.PN.GYNONC ---
Today's Communication
-
-
Impression / Plan
-
POD 2
patient doing well
law was removed and has been able to urinate
getting potassium now was 3.3 on morning labs
diet- per colo rectal
continue oob and use of incentive spirometer.
Subjective / Interval History
-
pod 2 She is doing well, still having abdominal discomfort but up and moving and was out of bed this morning to urinate, law cath has been removed and no difficulties with urination. Has tolerated water and did just have some apple juice no gas
but is burping.
Objective Data
-
Lab Results:
01/07/25 04:18
01/07/25 04:18
Physical Exam
Vital Signs / I&O
Vitals
Temp Pulse Resp BP Pulse Ox
98.2 F 69 16 145/70 98
01/07/25 07:28 01/07/25 07:28 01/07/25 07:28 01/07/25 07:28 01/07/25 07:28
I&O
01/05/25 01/06/25 01/07/25 01/08/25
06:59 06:59 06:59 06:59
Intake Total 1900 / 1900 2190 / 2190
Output Total 1500 / 1500 2024
Balance 400 / 400 165 / 165
Physical Exam
Abdomen soft incisional tenderness incision dry
Respiratory: Non Labored Respirations
Data Reviewed
-
Lab Data: Labs Reviewed and Discussed with Physician
[2025-01-07 11:21] LABS: Vitamin D, 25-OH*** 26.5 ng/mL (30-80)
[2025-01-07 14:55] VITALS: BP 152/83
--- NOTE | 2025-01-07 15:56 | CM ---
Reviewed the chart notes. Patient's diet advanced to clear liquid. Patient ambulating ad [place]. CM continues to be available to patient/family and is monitoring medical plan for needs at discharge.
Plan: Discharge plans will depend on patient's progress. Hopefully home with no needs.
[2025-01-07] MEDS: ZOFRAN 4 MG IV (16:26)
[2025-01-07] MEDS: LOVENOX 40 MG SC (17:04)
[2025-01-07] MEDS: D5LR 1000 IV (17:37)
[2025-01-07] MEDS: NSS IV (17:44)
[2025-01-07] MEDS: TYLENOL PO ×2 (20:03→23:15)
[2025-01-07 23:25] VITALS: BP 124/75
[2025-01-08] MEDS: TYLENOL PO ×5 (03:27→23:16)
[2025-01-08] MEDS: TORADOL 15 MG IV (03:27)
[2025-01-08] MEDS: DILAUDID 0.5 MG IV ×5 (03:28→22:12)
[2025-01-08 04:35] VITALS: BMI 21.2
[2025-01-08 05:31] LABS: Hematocrit 27.8 % (37.0-47.0); Hemoglobin 9.5 g/dL (12.0-16.0); Mean Corp Hgb Conc. 34.2 g/dL (33.0-37.0); Mean Corpuscular Hgb 26.3 pg (27.0-31.0); Mean Platelet Volume 9.4 fL (7.4-10.4); Platelet Count 194 10^3/uL (130-400); Red Blood Cell Count 3.61 10^6/uL (4.20-5.40); Red Cell Dist. Width 19.8 % (11.5-14.5); White Blood Cell Count 5.2 10^3/uL (4.8-10.8)
[2025-01-08 05:53] LABS: ALT (SGPT) 11 U/L (0-35); AST (SGOT) 23 U/L (14-36); Albumin 2.2 g/dl (3.5-5.0); Alkaline Phosphatase 45 U/L (38-126); Blood Urea Nitrogen 4 mg/dl (7-17); Calcium 7.8 mg/dl (8.4-10.2); Carbon Dioxide 27 mmol/L (22-30); Chloride 108 mmol/L (98-107); Estimated Creatinine Clearance 66 ml/min; Glucose 122 mg/dl (70-99); Potassium 3.4 mmol/L (3.5-5.1); Sodium 136 mmol/L (135-145); Total Bilirubin 0.9 mg/dl (0.2-1.3); Total Protein 4.2 g/dl (6.3-8.2); eGFR > 60.00
[2025-01-08] MEDS: D5LR 1000 IV ×2 (06:09→20:28)
[2025-01-08 07:30] VITALS: BP 134/73
--- NOTE | 2025-01-08 08:34 | W.PN.GYNONC ---
Today's Communication
-
-
Impression / Plan
-
POD 3
patient doing well
reassurance given to patient about the incision and could see a little drainage but to let us know if there is more bleeding
VSS, labs stable
diet- per colo rectal
continue oob and use of incentive spirometer.
Subjective / Interval History
-
pod 3
She is continuing to improve She did notice blood from the bottom of the dressing earlier this morning after up and moving. Tloerating liquid diet but not able to eat a lot at one time Still just burping does feel gurgle but no gas yet. Pain is
a little better but trying to stay on top of asking for pain medication to be able to be up and moving
Objective Data
-
Lab Results:
01/08/25 05:13
01/08/25 05:13
Physical Exam
Vital Signs / I&O
Vitals
Temp Pulse Resp BP Pulse Ox
97.8 F 68 17 134/73 98
01/08/25 07:30 01/08/25 07:30 01/08/25 07:30 01/08/25 07:30 01/08/25 07:30
I&O
01/06/25 01/07/25 01/08/25 01/09/25
06:59 06:59 06:59 06:59
Intake Total 1900 / 1900 2190 / 2190 1140 / 1140
Output Total 1500 / 1500 2024 / 2024 400 / 400
Balance 400 / 400 165 / 165 1140 / 1140 -400 / -400
Physical Exam
VSS
incision- small blood clot at bottom of incision between the last two gail. It was easily extracted and not active bleeding or drainage. pressure dressing applied to area.
Abdomen is soft incisional tenderness bowel sounds present
Data Reviewed
-
Lab Data: Labs Reviewed and Discussed with Physician
[2025-01-08] MEDS: PROTONIX IV 40 MG IV (09:09)
[2025-01-08] MEDS: NSS (PRESERVATIVE FREE) 10 ML IV (09:10)
[2025-01-08] MEDS: TYLENOL 650 MG PO ×3 (09:28→20:19)
[2025-01-08] MEDS: KCL 160 MEQ IV (09:32)
--- NOTE | 2025-01-08 10:07 | W.PN.CRS1 ---
Today's Communication / Plan
-
remain on clears
add Ensure
Assessment/Plan
-
POD#3 Sigmoid resection with primary anastomosis, and takedown of splenic flexure during an exploratory laparotomy, total hysterectomy, omentectomy, and appendectomy by Dr. Motley
WBC 5.2 Hgb 9.5
vitals normal
-Continue clears today given pain. Will add Ensure clear BID.
-Continue IVFs until tolerating clears
-OOB as tolerated
-Lovenox for DVT prophylaxis.
-OR pathology pending
-Pain control: Dilaudid TOOL DISPATCHER, motrin, toradol IV, acetaminophen q6hr
Subjective Data
Procedure
01/05- Sigmoid resection with primary anastomosis, and takedown of splenic flexure during an exploratory laparotomy, total hysterectomy, omentectomy, and appendectomy by Dr. Motley
Subjective Data
Date of Service: January 08, 2025
Patient states she had some nausea but no vomiting. She still has a lot of pain. She had some incisional bleeding this morning.
Objective Data
-
Vital Signs
Temp Pulse Resp BP Pulse Ox
97.8 F 68 17 134/73 98
01/08/25 07:30 01/08/25 07:30 01/08/25 07:30 01/08/25 07:30 01/08/25 07:30
Intake & Output
01/07/25 01/08/25 01/09/25
06:59 06:59 06:59
Intake Total 2189 / 2189 1140 / 1140
Output Total 2024 400 / 400
Balance 165 / 165 1140 / 1140 -400 / -400
Intake:
Oral fluids 210 / 210 660 / 660
IV fluids (Total) 1979 / 1979 480 / 480
Output:
Urine, Berg 2024
Urine, Voided 400 / 400
Other:
Number of approximated MODERATE 3
amounts of urine
Lab Results
01/08/25 05:13
01/08/25 05:13
Physical Exam
-
General: No Acute Distress and AOx3
Abdomen: Soft, Distended (mild) and Tender (around incision)
Wound: Dressing in Place
--- NOTE | 2025-01-08 10:51 | CM ---
Reviewed the chart notes and spoke with the patient at the bedside. Discussed VN services. Referral sent via [facility] for [facility]. CM continues to be available to patient/family and is monitoring medical plan for needs at discharge.
Plan: Discharge to home when medically stable with potential need for [facility] services. Referral sent.
--- NOTE | 2025-01-08 11:39 | W.PN.HOSP.TC ---
Today's Communication/Plan
-
Post op care
replace K
Assessment / Plan
Assessment / Plan
Pleasant 69-year-old female with history of ovarian cancer S/P exploratory laparotomy, radical tumor debulking including total abdominal hysterectomy BSO, infraglottic and gastrocolic omentectomy and multiple peritoneal resection, lymph node
dissection, appendectomy, sigmoid resection and colorectal anastomosis and mobilization of the splenic flexure. Patient lost about 1 L of blood and received 4 units of PRBCs and 2 units of FFP's .
Ovarian cancer was diagnosed in May 2024 when she had pelvic pressure and found a right adnexal mass 12.1 into 12.8 into 8 cm. CA125 in July 01, 2024 was 134. Patient received 1 cycle of chemotherapy 08/14/2024 and had a lot of side
effects she saw alternate oriental medicine practitioner and started with supplements. She was not feeling better and went back and chemotherapy. She had another chemotherapy with Taxol, carboplatin and bevacizumab . Had 4 cycles so far and the
last cycle was end of November 2024.
Chest x-ray-mild right pleural effusion.
On examination awake alert oriented pleasant
Cardiovascular system S1-S2 appreciated
Chest clear to auscultation
Abdomen midline incision , sluggish high-pitched bowel sounds
midline incision with mild shadowing
# Advanced ovarian mass
MICHELLE, BSO, omentectomy, tumor debulking, sigmoid resection, infraglottic and gastrocolic omentectomy, peritoneal resection, lymph node resection, appendectomy, sigmoid resection, colorectal anastomosis and mobilization of the splenic flexure (
/)
Status post 4 units of PRBC and 2 units FFP's
NG tube out
CA 125 - 259
On clears
Pain management-Dilaudid, ordered
Follow hemoglobin
# Hypokalemia-replace
# Malignant ascites with paracentesis 11 times (01/01/2025, 12/21/2024, 12/08/2024, 11/18/2024, 10/26/2024, 10/16/2024, 10/09/2024, 09/28/2024, 08/17/2024, 08/10/2024, 08/04/2024)
# Hypertension-follow blood pressure postoperatively. Not on meds as OP.
# Anemia multifactorial likely secondary to Baseline thalassemia, acute blood loss anemia postoperative and also anemia of chronic disease
# Thalassemia
# Hypoalbuminemia
# Ex-smoker quit in 1985
# DVT prophylaxis-Lovenox
# Full code
Discussed with nursing
Part of this note was created using voice recognition system. Occasional wrong word or��sound alike� substitutions may have inadvertently occurred due to the inherent limitations of voice recognition software. If noted kindly bring it to my
attention for correction.
Anticipated Discharge: 24 - 48 hours
Subjective/Interval History
-
Date of Service: January 08, 2025
Objective Data
-
Labs:
Laboratory Results
01/08/25
05:13
WBC 5.2
Hgb 9.5 L
Hct 27.8 L
Plt Count 194
Sodium 136
Potassium 3.4 L
Chloride 108 H
Carbon Dioxide 27
BUN 4 L
Creatinine 0.4 L
Glucose 122 H
Calcium 7.8 L
Total Bilirubin 0.9
AST 23
ALT 11
Alkaline Phosphatase 45
Vital Signs:
Vital Signs
Temp Pulse Resp BP Pulse Ox
97.8 F 68 17 134/73 98
01/08/25 07:30 01/08/25 07:30 01/08/25 07:30 01/08/25 07:30 01/08/25 07:30
I&O
01/07/25 01/08/25 01/09/25
06:59 06:59 06:59
Intake Total 2190 / 2190 1140 / 1140 150 / 150
Output Total 2024 400 / 400
Balance 165 / 165 1140 / 1140 -250 / -250
[2025-01-08] MEDS: VITAMIN D3 (cholecalciferol) 10 MCG PO (12:38)
[2025-01-08 12:41] VITALS: BMI 21.2
[2025-01-08 15:27] VITALS: BP 135/75
--- NOTE | 2025-01-08 15:42 | VNURNOTE ---
Addendum entered by Laura Swanson RN 01/11/25 07:59:
Rec'ed confirmation from patient that she'd like to proceed with [facility]. Will continue to follow for DC date. [facility] referral accepted in [facility].
Original Note:
Chart reviewed. Home Health Liaison spoke with patient at bedside to discuss [facility] nurse/therapy, visits, schedule and homebound status. wants to think about it. She understands that visits at home will be 2-3 x per week to assess and teach medical
management. This author explained that VN will contact the pt for start of care in 1-2 days after discharge from . Provided pt with liaison contact number if she decides against VN. She stated she'd like to think about it, she seemed
agreeable.
[facility] referral accepted in [facility]. Will update if pt changes her mind.
[2025-01-08] MEDS: LOVENOX 40 MG SC (16:59)
[2025-01-08 23:20] VITALS: BP 131/76
[2025-01-09] MEDS: TYLENOL 650 MG PO ×2 (04:41→09:02)
[2025-01-09] MEDS: DILAUDID 0.5 MG IV ×2 (04:41→17:27)
[2025-01-09 05:16] LABS: Hematocrit 29.3 % (37.0-47.0); Hemoglobin 9.9 g/dL (12.0-16.0); Mean Corp Hgb Conc. 33.8 g/dL (33.0-37.0); Mean Corpuscular Hgb 26.1 pg (27.0-31.0); Mean Corpuscular Volume 77.3 fL (81.0-99.0); Mean Platelet Volume 9.2 fL (7.4-10.4); Platelet Count 227 10^3/uL (130-400); Red Blood Cell Count 3.79 10^6/uL (4.20-5.40); Red Cell Dist. Width 19.8 % (11.5-14.5); White Blood Cell Count 4.6 10^3/uL (4.8-10.8)
[2025-01-09 05:41] LABS: Blood Urea Nitrogen 4 mg/dl (7-17); Calcium 8.2 mg/dl (8.4-10.2); Carbon Dioxide 30 mmol/L (22-30); Chloride 107 mmol/L (98-107); Estimated Creatinine Clearance 66 ml/min; Glucose 98 mg/dl (70-99); Magnesium 1.6 mg/dl (1.6-2.3); Potassium 3.6 mmol/L (3.5-5.1); Sodium 136 mmol/L (135-145); eGFR > 60.00
[2025-01-09 07:00] VITALS: BP 141/77
[2025-01-09] MEDS: PROTONIX IV 40 MG IV (09:01)
[2025-01-09] MEDS: NSS (PRESERVATIVE FREE) 10 ML IV (09:01)
[2025-01-09] MEDS: MAGNESIUM SULFATE 102 GRAMS IV (09:02)
[2025-01-09] MEDS: VITAMIN D3 (cholecalciferol) 10 MCG PO (09:02)
--- NOTE | 2025-01-09 09:15 | W.PN.CRS1 ---
Today's Communication / Plan
-
Continue cld
Assessment/Plan
-
69 yo female with a h/o advanced ovarian cancer s/p neoadjuvant chemo now POD#4 Sigmoid resection with primary anastomosis, and takedown of splenic flexure during an exploratory laparotomy, total hysterectomy, omentectomy, and appendectomy by
Tiesha
Labs stable
Afebrile, VSS
Continues to have abdominal pain/not passing flatus, mild intermittent nausea. Expected ileus
-Continue clears until better bowel recovery
-IVF as per primary team
-OOB as tolerated
-Lovenox for DVT prophylaxis.
-PPI for GI ppx
-OR pathology pending
-Pain control: Dilaudid, ibuprofen, acetaminophen q6hr
Subjective Data
Procedure
01/05- Sigmoid resection with primary anastomosis, and takedown of splenic flexure during an exploratory laparotomy, total hysterectomy, omentectomy, and appendectomy by Dr. Motley
Subjective Data
Date of Service: January 09, 2025
Patient seen and examined at bedside with Dr. Whiteside. Denies vomiting but has a little nausea after PO intake. Not yet passing flatus. Pain about the same as yesterday, no worse but no better.
Objective Data
-
Vital Signs
Temp Pulse Resp BP Pulse Ox
98 F 72 12 141/77 97
01/09/25 07:00 01/09/25 07:00 01/09/25 07:00 01/09/25 07:00 01/09/25 07:00
Intake & Output
01/08/25 01/09/25 01/10/25
06:59 06:59 06:59
Intake Total 1140 / 1140 4080 / 4080
Output Total 400 / 400
Balance 1140 / 1140 3680 / 3680
Intake:
Oral fluids 660 / 660 3210 / 3210
IV fluids (Total) 480 / 480 720 / 720
IV piggybacks 150 / 150
Output:
Urine, Voided 400 / 400
Other:
Number of approximated MODERATE 3 2
amounts of urine
Lab Results
01/09/25 04:30
01/09/25 04:30
Physical Exam
-
General: No Acute Distress and AOx3
Abdomen: Soft, Distended (mild) and Tender (around incision)
Wound: Dressing in Place (shadowing noted)
--- NOTE | 2025-01-09 09:31 | W.PN.GYNONC ---
Today's Communication
-
-
Impression / Plan
-
POD 4
patient doing well
VSS, labs stable
diet- per colo rectal
continue oob and use of incentive spirometer.
Subjective / Interval History
-
POD4
She states she had a good night was able to go 6 hrs before needing pain meds. Tolerating diet but still just buroing no gas yet. She is getting out of bed and trying to sit more
Objective Data
-
Lab Results:
01/09/25 04:30
01/09/25 04:30
Physical Exam
Vital Signs / I&O
Vitals
Temp Pulse Resp BP Pulse Ox
98 F 72 12 141/77 97
01/09/25 07:00 01/09/25 07:00 01/09/25 07:00 01/09/25 07:00 01/09/25 07:00
I&O
01/07/25 01/08/25 01/09/25 01/10/25
06:59 06:59 06:59 06:59
Intake Total 2190 / 2190 1140 / 1140 4080 / 4080
Output Total 2024 400 / 400
Balance 165 / 165 1140 / 1140 3680 / 3680
Physical Exam
VSS
abdomen is soft with bowel sounds, incisional tenderness, no additional bleeding for incision
Data Reviewed
-
Lab Data: Labs Reviewed, Discussed with Physician and Discussed with Patient
--- NOTE | 2025-01-09 09:55 | W.PN.HOSP.TC ---
Today's Communication/Plan
-
Await return of bowel function
Assessment / Plan
Assessment / Plan
Pleasant 69-year-old female with history of ovarian cancer S/P exploratory laparotomy, radical tumor debulking including total abdominal hysterectomy BSO, infraglottic and gastrocolic omentectomy and multiple peritoneal resection, lymph node
dissection, appendectomy, sigmoid resection and colorectal anastomosis and mobilization of the splenic flexure. Patient lost about 1 L of blood and received 4 units of PRBCs and 2 units of FFP's .
Ovarian cancer was diagnosed in May 2024 when she had pelvic pressure and found a right adnexal mass 12.1 into 12.8 into 8 cm. CA125 in July 01, 2024 was 134. Patient received 1 cycle of chemotherapy 08/14/2024 and had a lot of side
effects she saw alternate oriental medicine practitioner and started with supplements. She was not feeling better and went back and chemotherapy. She had another chemotherapy with Taxol, carboplatin and bevacizumab . Had 4 cycles so far and the
last cycle was end of November 2024.
Chest x-ray-mild right pleural effusion.
On examination awake alert oriented pleasant
Cardiovascular system S1-S2 appreciated
Chest clear to auscultation
Abdomen midline incision , sluggish high-pitched bowel sounds, Distended
# Advanced ovarian mass
MICHELLE, BSO, omentectomy, tumor debulking, sigmoid resection, infraglottic and gastrocolic omentectomy, peritoneal resection, lymph node resection, appendectomy, sigmoid resection, colorectal anastomosis and mobilization of the splenic flexure (
/)
Status post 4 units of PRBC and 2 units FFP's
NG tube out
CA 125 - 259
On clears
Pain management-Dilaudid, ordered
Follow hemoglobin
Still no return of bowel function.
# Hypokalemia-replaced
# Malignant ascites with paracentesis 11 times (01/01/2025, 12/21/2024, 12/08/2024, 11/18/2024, 10/26/2024, 10/16/2024, 10/09/2024, 09/28/2024, 08/17/2024, 08/10/2024, 08/04/2024)
# Hypertension-follow blood pressure postoperatively. Not on meds as OP. BP acceptable.
# Anemia multifactorial likely secondary to Baseline Thalassemia, Acute blood loss anemia postoperative and also anemia of chronic disease
# Thalassemia
# Hypoalbuminemia
# Vit D Def- replace
# Ex-smoker quit in 1985
# DVT prophylaxis-Lovenox
# Full code
Discussed with nursing at bed side
D/W Surgeon at bed side
Part of this note was created using voice recognition system. Occasional wrong word or��sound alike� substitutions may have inadvertently occurred due to the inherent limitations of voice recognition software. If noted kindly bring it to my
attention for correction.
Anticipated Discharge: > 48 hours
Subjective/Interval History
-
Date of Service: January 09, 2025
Objective Data
-
Labs:
Laboratory Results
01/09/25
04:30
WBC 4.6 L
Hgb 9.9 L
Hct 29.3 L
Plt Count 227
Sodium 136
Potassium 3.6
Chloride 107
Carbon Dioxide 30
BUN 4 L
Creatinine 0.4 L
Glucose 98
Calcium 8.2 L
Vital Signs:
Vital Signs
Temp Pulse Resp BP Pulse Ox
98 F 72 12 141/77 97
01/09/25 07:00 01/09/25 07:00 01/09/25 07:00 01/09/25 07:00 01/09/25 07:00
I&O
01/08/25 01/09/25 01/10/25
06:59 06:59 06:59
Intake Total 1140 / 1140 4080 / 4080
Output Total 400 / 400
Balance 1140 / 1140 3680 / 3680
[2025-01-09] MEDS: ZOFRAN 4 MG IV (10:38)
[2025-01-09] MEDS: MOTRIN 400 MG PO ×2 (10:56→22:13)
[2025-01-09 12:21] LABS: TSH 2.51 uIU/ml (0.47-4.68)
[2025-01-09] MEDS: TYLENOL PO ×3 (12:40→19:55)
[2025-01-09 15:00] VITALS: BP 148/75
[2025-01-09] MEDS: LOVENOX SC (17:27)
[2025-01-09 23:20] VITALS: BP 152/74
[2025-01-10] MEDS: TYLENOL 650 MG PO ×4 (00:42→11:59)
[2025-01-10 06:11] LABS: Hematocrit 30.7 % (37.0-47.0); Hemoglobin 10.1 g/dL (12.0-16.0); Mean Corp Hgb Conc. 32.9 g/dL (33.0-37.0); Mean Corpuscular Hgb 25.6 pg (27.0-31.0); Mean Corpuscular Volume 77.9 fL (81.0-99.0); Mean Platelet Volume 9.2 fL (7.4-10.4); Platelet Count 258 10^3/uL (130-400); Red Blood Cell Count 3.94 10^6/uL (4.20-5.40); Red Cell Dist. Width 19.9 % (11.5-14.5); White Blood Cell Count 4.9 10^3/uL (4.8-10.8)
[2025-01-10 06:32] LABS: Blood Urea Nitrogen 3 mg/dl (7-17); Carbon Dioxide 27 mmol/L (22-30); Chloride 107 mmol/L (98-107); Estimated Creatinine Clearance 66 ml/min; Glucose 96 mg/dl (70-99); Magnesium 1.7 mg/dl (1.6-2.3); Potassium 3.5 mmol/L (3.5-5.1); Sodium 137 mmol/L (135-145); eGFR > 60.00
[2025-01-10 07:30] VITALS: BP 152/76
--- NOTE | 2025-01-10 08:45 | W.PN.GYNONC ---
Today's Communication
-
-
Impression / Plan
-
POD 5
patient doing well still no gas
dressing removed and incision healing well
VSS, labs stable
diet- per colo rectal
continue oob and use of incentive spirometer.
Subjective / Interval History
-
POD 5
She had a good night off the dilaudid pain controlled bytylenol and motrin Still having waves of nausea no gas yet.
Objective Data
-
Lab Results:
01/10/25 05:30
01/10/25 05:30
Physical Exam
Vital Signs / I&O
Vitals
Temp Pulse Resp BP Pulse Ox
97.9 F 82 16 152/76 98
01/10/25 07:30 01/10/25 07:30 01/10/25 07:30 01/10/25 07:30 01/10/25 07:30
I&O
01/08/25 01/09/25 01/10/25 01/11/25
06:59 06:59 06:59 06:59
Intake Total 1140 / 1140 4080 / 4080 1302 / 1302
Output Total 400 / 400
Balance 1140 / 1140 3680 / 3680 1302 / 1302
Physical Exam
VSS
abdomen- soft incisional tenderness dressing removed incision clean and dry
Data Reviewed
-
Lab Data: Labs Reviewed, Discussed with Physician and Discussed with Nurse
[2025-01-10] MEDS: PROTONIX IV 40 MG IV (08:46)
[2025-01-10] MEDS: MAGNESIUM OXIDE 500 MG PO (08:46)
[2025-01-10] MEDS: VITAMIN D3 (cholecalciferol) 10 MCG PO (08:47)
[2025-01-10] MEDS: NSS (PRESERVATIVE FREE) 10 ML IV (08:49)
--- NOTE | 2025-01-10 09:14 | W.PN.HOSP.TC ---
Today's Communication/Plan
-
Await return of bowel function
IV fluids ordered
X-ray of the abdomen
Assessment / Plan
Assessment / Plan
Pleasant 69-year-old female with history of ovarian cancer S/P exploratory laparotomy, radical tumor debulking including total abdominal hysterectomy BSO, infraglottic and gastrocolic omentectomy and multiple peritoneal resection, lymph node
dissection, appendectomy, sigmoid resection and colorectal anastomosis and mobilization of the splenic flexure. Patient lost about 1 L of blood and received 4 units of PRBCs and 2 units of FFP's .
Ovarian cancer was diagnosed in May 2024 when she had pelvic pressure and found a right adnexal mass 12.1 into 12.8 into 8 cm. CA125 in July 01, 2024 was 134. Patient received 1 cycle of chemotherapy 08/14/2024 and had a lot of side
effects she saw alternate oriental medicine practitioner and started with supplements. She was not feeling better and went back and chemotherapy. She had another chemotherapy with Taxol, carboplatin and bevacizumab . Had 4 cycles so far and the
last cycle was end of November 2024.
Chest x-ray-mild right pleural effusion.
On examination awake alert oriented pleasant
Cardiovascular system S1-S2 appreciated
Chest clear to auscultation
Abdomen midline incision , sluggish high-pitched bowel sounds, Distended
# Advanced ovarian mass
MICHELLE, BSO, omentectomy, tumor debulking, sigmoid resection, infraglottic and gastrocolic omentectomy, peritoneal resection, lymph node resection, appendectomy, sigmoid resection, colorectal anastomosis and mobilization of the splenic flexure (
/)
Status post 4 units of PRBC and 2 units FFP's
NG tube out
CA 125 - 259
On clears
Pain management-Dilaudid, ordered
Follow hemoglobin
Still no return of bowel function. High-pitched bowel sounds
Agree with x-ray of the abdomen today
# Hypokalemia-replaced. Add IV fluids with potassium
# Malignant ascites with paracentesis 11 times (01/01/2025, 12/21/2024, 12/08/2024, 11/18/2024, 10/26/2024, 10/16/2024, 10/09/2024, 09/28/2024, 08/17/2024, 08/10/2024, 08/04/2024)
# Hypertension-follow blood pressure postoperatively. Not on meds as OP. BP acceptable.
# Anemia multifactorial likely secondary to Baseline Thalassemia, Acute blood loss anemia postoperative and also anemia of chronic disease
# Thalassemia
# Hypoalbuminemia
# Vit D Def- replace
# Ex-smoker quit in 1985
# DVT prophylaxis-Lovenox
# Full code
Discussed with nursing at bed side
D/W son at bed side
Part of this note was created using voice recognition system. Occasional wrong word or��sound alike� substitutions may have inadvertently occurred due to the inherent limitations of voice recognition software. If noted kindly bring it to my
attention for correction.
Anticipated Discharge: > 48 hours
Subjective/Interval History
-
Date of Service: January 10, 2025
Objective Data
-
Labs:
Laboratory Results
01/10/25
05:30
WBC 4.9
Hgb 10.1 L
Hct 30.7 L
Plt Count 258
Sodium 137
Potassium 3.5
Chloride 107
Carbon Dioxide 27
BUN 3 L
Creatinine 0.4 L
Glucose 96
Calcium 8.0 L
Vital Signs:
Vital Signs
Temp Pulse Resp BP Pulse Ox
97.9 F 82 16 152/76 98
01/10/25 07:30 01/10/25 07:30 01/10/25 07:30 01/10/25 07:30 01/10/25 07:30
I&O
01/09/25 01/10/25 01/11/25
06:59 06:59 06:59
Intake Total 4080 / 4080 1302 / 1302
Output Total 400 / 400
Balance 3680 / 3680 1302 / 1302
--- NOTE | 2025-01-10 09:37 | W.PN.CRS1 ---
Today's Communication / Plan
-
XR abd
Assessment/Plan
-
69 yo female with a h/o advanced ovarian cancer s/p neoadjuvant chemo now POD#4 Sigmoid resection with primary anastomosis, and takedown of splenic flexure during an exploratory laparotomy, total hysterectomy, omentectomy, and appendectomy by
Tiesha
Labs stable
Afebrile, VSS
Continues to have abdominal pain/not passing flatus, mild intermittent nausea. Expected ileus
Plan:
-Check KUB
-Continue clears until better bowel recovery, may need to be NPO if nausea worsens
-IVF as per primary team
-OOB as tolerated
-Lovenox for DVT prophylaxis.
-PPI for GI ppx
-OR pathology pending
-Pain control: Dilaudid, ibuprofen, acetaminophen q6hr
Subjective Data
Procedure
01/05- Sigmoid resection with primary anastomosis, and takedown of splenic flexure during an exploratory laparotomy, total hysterectomy, omentectomy, and appendectomy by Dr. Motley
Subjective Data
Date of Service: January 10, 2025
Patient seen and examined at bedside with Dr. Whiteside. Denies vomiting, nausea improved but still present. Continues with distention. Not yet passing flatus. Pain a bit better today but still with cramping.
Objective Data
-
Vital Signs
Temp Pulse Resp BP Pulse Ox
97.9 F 82 16 152/76 98
01/10/25 07:30 01/10/25 07:30 01/10/25 07:30 01/10/25 07:30 01/10/25 07:30
Intake & Output
01/09/25 01/10/25 01/11/25
06:59 06:59 06:59
Intake Total 4080 / 4080 1302 / 1302
Output Total 400 / 400
Balance 3680 / 3680 1302 / 1302
Intake:
Oral fluids 3210 / 3210 480 / 480
IV fluids (Total) 720 / 720 720 / 720
IV piggybacks 150 / 150 102 / 102
Output:
Urine, Voided 400 / 400
Other:
Number of approximated MODERATE 2
amounts of urine
Lab Results
01/10/25 05:30
01/10/25 05:30
Physical Exam
-
General: No Acute Distress and AOx3
Abdomen: Soft, Distended, Tender (around incision) and Tympanetic
Incision: Clear, Dry, Intact (Michael intact, some bloody drainage from base of incision. Dressing changed.)
Data Reviewed
-
Diagnostic Radiology: Image Reviewed
[2025-01-10] MEDS: KCL 1005 MEQ IV (09:51)
[2025-01-10] MEDS: MOTRIN 400 MG PO (13:48)
[2025-01-10 15:25] VITALS: BP 159/85
--- NOTE | 2025-01-10 15:43 | PTCARENOTE ---
Patient reported 'passing gas'; notified Dr. Mejia, Margie Villavicencio [employer], & Aristides PERALTA.
[2025-01-10] MEDS: TYLENOL PO ×2 (16:01→21:13)
--- NOTE | 2025-01-10 16:12 | W.PN.UPDATE ---
Update Note
Progress Note Update
Patient seen and examined at bedside. Reviewed XR findings from today. Questions addressed.
XR with expected ileus, gaseous distention in the colon. Patient is wearing a robe from home with a large round (approx 3cm) button matching the location of the extrinsic attenuation mentioned on radiology report.
Distended on exam with belching. Intermittent nausea. Not yet passing flatus at the time of my exam. Notified by nursing staff that she did pass flatus just after I saw her.
Ok for clears for comfort, hold on dietary advancement given xr findings and ongoing distention
[2025-01-10] MEDS: LOVENOX 40 MG SC (17:33)
[2025-01-10] MEDS: DILAUDID 0.5 MG IV (20:13)
[2025-01-10] MEDS: MYLICON 80 MG PO (21:26)
[2025-01-10 23:08] VITALS: BP 152/78
[2025-01-11] MEDS: TYLENOL PO ×3 (00:10→20:07)
[2025-01-11] MEDS: TYLENOL 650 MG PO ×3 (04:04→16:49)
[2025-01-11] MEDS: KCL 1005 MEQ IV (04:04)
--- NOTE | 2025-01-11 04:34 | W.PN.UPDATE ---
Update Note
Progress Note Update
Called by RN to evaluate rash on patients left side hip/abdomen area. Per pt, she woke up itchy and noted rash on left side of stomach, hip area. Also noted rash on left AC and scattered areas on b/l hands. Ordered Benadryl 25 mg IV and requested
areas be marked by RN.
[2025-01-11] MEDS: BENADRYL 25 MG IV (04:39)
[2025-01-11 05:55] LABS: Blood Urea Nitrogen 4 mg/dl (7-17); Calcium 8.1 mg/dl (8.4-10.2); Carbon Dioxide 26 mmol/L (22-30); Chloride 107 mmol/L (98-107); Estimated Creatinine Clearance 66 ml/min; Glucose 98 mg/dl (70-99); Magnesium 1.6 mg/dl (1.6-2.3); Potassium 3.2 mmol/L (3.5-5.1); Sodium 137 mmol/L (135-145); eGFR > 60.00
--- NOTE | 2025-01-11 06:17 | PTCARENOTE ---
0500pt c/o light rash on left lower abd and l flank area. FEATHERER made aware, FEATHERER assessed pt, Rash outlined, Benadryl administered with hypoallergenic sheets ordered, MD consult as well.
[2025-01-11 07:35] VITALS: BP 152/87
--- NOTE | 2025-01-11 07:55 | W.PN.GYNONC ---
Today's Communication
-
N/A
Impression / Plan
-
POD 6
patient doing well , appears to have resumed her bowel function
I will advance her diet to full liquids, hoping to advance further later today
We can discontinue IV fluids
She has mild elevation of systolic pressures, it is likely due to some of the abdominal gas pain and discomfort,
Continue DVT and GI prophylaxis
Appreciate input by my colleagues in colorectal surgery and internal medicine
Ar Motley
[phone]
Subjective / Interval History
-
POD 6 MICHELLE BSO, Oment, LAR, Appy
Over the last 24 hours patient is passing significant flatus, abdominal gas pain and discomfort has improved
She has not had a bowel movement
She developed a rash in left flank and fingers received Benadryl, it appears that it is resolved
She has been ambulate
Objective Data
-
Lab Results:
01/10/25 05:30
01/11/25 04:53
Physical Exam
Vital Signs / I&O
Vitals
Temp Pulse Resp BP Pulse Ox
98.1 F 71 17 152/78 98
01/10/25 23:08 01/10/25 23:08 01/10/25 23:08 01/10/25 23:08 01/10/25 23:08
I&O
01/09/25 01/10/25 01/11/25 01/12/25
06:59 06:59 06:59 06:59
Intake Total 4080 / 4080 1302 / 1302 2009
Output Total 400 / 400
Balance 3680 / 3680 1301 / 1301
Physical Exam
General: No Apparent Distress
Respiratory: Clear and Non Labored Respirations
Cardiac: S1/S2 and Regular Rhythm
GI: Soft, Distended (Mildly,) and Other (Incision is intact with gail without any erythema or drainage, ABD dressing was removed)
Musculoskeletal: No Clubbing, No Cyanosis and No Edema
[2025-01-11] MEDS: MAGNESIUM OXIDE 500 MG PO (08:42)
[2025-01-11] MEDS: VITAMIN D3 (cholecalciferol) 10 MCG PO (08:42)
--- NOTE | 2025-01-11 08:47 | W.PN.CRS1 ---
Today's Communication / Plan
-
full liquids
Assessment/Plan
-
69 yo female with a h/o advanced ovarian cancer s/p neoadjuvant chemo now POD#5 Sigmoid resection with primary anastomosis, and takedown of splenic flexure during an exploratory laparotomy, total hysterectomy, omentectomy, and appendectomy by
Tiesha
No CBC today
Afebrile, VSS
Plan:
-Advanced to fulls this morning by Dr. Motley
-IVF as per primary team
-OOB as tolerated
-Lovenox for DVT prophylaxis.
-PPI for GI ppx
-OR pathology pending
-Pain control: Dilaudid, ibuprofen, acetaminophen q6hr
Subjective Data
Procedure
01/05- Sigmoid resection with primary anastomosis, and takedown of splenic flexure during an exploratory laparotomy, total hysterectomy, omentectomy, and appendectomy by Dr. Motley
Subjective Data
Date of Service: January 11, 2025
Patient states she had a 'horrible night'. She had nausea and pain. She feels better today. She is having flatus but no bowel movements yet. She is urinating without difficulty.
Objective Data
-
Vital Signs
Temp Pulse Resp BP Pulse Ox
98.3 F 74 16 152/87 95
01/11/25 07:35 01/11/25 07:35 01/11/25 07:35 01/11/25 07:35 01/11/25 07:35
Intake & Output
01/10/25 01/11/25 01/12/25
06:59 06:59 06:59
Intake Total 1302 / 1302 2009
Balance 1302 / 1302 2009
Intake:
Oral fluids 480 / 480 960 / 960
IV fluids (Total) 720 / 720 1050 / 1050
IV piggybacks 102 / 102
Other:
Number of approximated MODERATE 2
amounts of urine
Lab Results
01/10/25 05:30
01/11/25 04:53
Physical Exam
-
General: No Acute Distress and AOx3
Abdomen: Soft, Non Distended and Tender
Skin: Warm and Dry
Wound: Dressing in Place
[2025-01-11] MEDS: KCL 40 MEQ PO (08:52)
[2025-01-11] MEDS: PROTONIX IV IV (09:03)
[2025-01-11] MEDS: PROTONIX 40 MG PO (09:54)
--- NOTE | 2025-01-11 12:17 | CM ---
Reviewed the chart notes and spoke with the patient at the bedside. IMM reviewed. CM received consult for [employer]. CM present patient with a 30 day free trial coupon. CM continues to be available to patient/family and is monitoring
medical plan for needs at discharge.
Plan: Discharge to home with [facility] services.
--- NOTE | 2025-01-11 12:27 | W.PN.HOSP.TC ---
Today's Communication/Plan
-
see A/P
Assessment / Plan
Assessment / Plan
69-year-old female with history of ovarian cancer s/p exploratory laparotomy, radical tumor debulking including total abdominal hysterectomy, BSO, omentectomy and multiple peritoneal resection, lymph node dissection, appendectomy, sigmoid resection
and colorectal anastomosis and mobilization of the splenic flexure. Patient lost about 1 L of blood and received 4 units PRBCs and 2 units FFP's .
Ovarian cancer was diagnosed in May 2024 when she had pelvic pressure and found a right adnexal mass. CA 125 in July 01, 2024 was 134. Patient received 1 cycle of chemotherapy 08/14/2024 and had a lot of side effects. She saw alternate
oriental medicine practitioner and started with supplements. She was not feeling better and went back to chemotherapy. She had another chemotherapy with Taxol, carboplatin and bevacizumab. She has had 4 cycles so far and the last cycle was at the
end of November 2024.
Chest x-ray-mild right pleural effusion.
A/P:
# Advanced ovarian mass
CA 125 to 259
s/p extensive surgery 01/05/2025: MICHELLE, BSO, omentectomy, tumor debulking, sigmoid resection, infraglottic and gastrocolic omentectomy, peritoneal resection, lymph node resection, appendectomy, sigmoid resection, colorectal anastomosis and
mobilization of the splenic flexure (Dr. Bullard/Dr. Motley)
Status post 4 units of PRBC and 2 units FFP's
NG tube out, diet advanced to full liquid
Cont pain control with scheduled Tylenol, Ibuprofen PRN
Off opiate with possibly ileus developing (noted AXR 01/10)
# Hypokalemia
# Hypomagnesemia
replete lytes
# Malignant ascites with paracentesis 11 times (01/01/2025, 12/21/2024, 12/08/2024, 11/18/2024, 10/26/2024, 10/16/2024, 10/09/2024, 09/28/2024, 08/17/2024, 08/10/2024, 08/04/2024)
# Hypertension
follow blood pressure postoperatively.
Not on meds as OP.
BP acceptable.
# Anemia multifactorial likely secondary to baseline thalassemia, with acute blood loss anemia postoperative and anemia of chronic disease
# Thalassemia
# Hypoalbuminemia
# Vit D Def
replace
# Ex-smoker quit in 1985
DVT prophylaxis-Lovenox
Full code
Dispo: PT OT eval
Discussed with nursing at bed side
D/W at bed side
total time 51 min
Anticipated Discharge: 24 - 48 hours
Subjective/Interval History
-
Date of Service: January 11, 2025
Objective Data
-
Labs:
Laboratory Results
01/11/25
04:53
Sodium 137
Potassium 3.2 L
Chloride 107
Carbon Dioxide 26
BUN 4 L
Creatinine 0.4 L
Glucose 98
Calcium 8.1 L
Vital Signs:
Vital Signs
Temp Pulse Resp BP Pulse Ox
36.8 C 74 16 152/87 95
01/11/25 07:35 01/11/25 07:35 01/11/25 07:35 01/11/25 07:35 01/11/25 08:36
I&O
01/10/25 01/11/25 01/12/25
06:59 06:59 06:59
Intake Total 1302 / 1302 2009
Balance 1302 / 1302 2009
Review of Systems
-
History Source: Patient
Abdomen/GI: Reports Abdominal Pain
Physical Exam
-
General: Well Developed, Well Nourished, No Apparent Distress, Comfortable and Conversant; Negative Respiratory Distress
HEENT: Normocephalic, Atraumatic, Nose Appears Normal and Ears Appear Normal; Negative Oxygen
Respiratory: Clear to Auscultation and Non Labored Respirations; Negative Accessory Resp Muscle Use
Cardiac: Regular Rhythm and S1/S2
GI: Tender (mild diffuse) and Distended
Musculoskeletal: Edema, Right Lower Extrem and Edema, Left Lower Extrem
Skin: Warm and Dry
Neuro: Awake, Alert, Oriented and AO x 3
Psych: Calm and Intact Judgement/Insight
Data Reviewed
-
Diagnostic Radiology: Report Reviewed by me
Labs: Labs Reviewed by me
[2025-01-11] MEDS: MAGNESIUM SULFATE 102 GRAMS IV (12:56)
[2025-01-11 15:40] VITALS: BP 143/80
[2025-01-11] MEDS: MOTRIN 400 MG PO (16:56)
[2025-01-11] MEDS: LOVENOX 40 MG SC (17:02)
[2025-01-11 17:06] VITALS: BP 168/98; BP 170/96; PULSE 80
[2025-01-11] MEDS: MAALOX PLUS 1 TABLET PO (17:23)
[2025-01-11 19:30] VITALS: BP 160/81
[2025-01-11 23:00] VITALS: BP 151/80
[2025-01-12] MEDS: TYLENOL PO ×2 (00:51→04:11)
[2025-01-12] MEDS: TYLENOL 650 MG PO ×4 (05:53→20:22)
[2025-01-12 06:00] LABS: % Basophils 0.4 % (0-2); % Eosinophils 2.9 % (0-6); % Immature Granulocytes 0.8 % (0-0.5); % Lymphocytes 31.5 % (20.5-51.1); % Monocytes 6.6 % (1.7-9.3); % Neutrophils 57.8 % (42.2-75.2); Absolute Eosinophils 0.2 10^3/uL (0-0.7); Absolute Lymphocytes 1.6 10^3/uL (1.2-3.4); Absolute Monocytes 0.3 10^3/uL (0.1-0.6); Hematocrit 30.8 % (37.0-47.0); Hemoglobin 10.4 g/dL (12.0-16.0); Mean Corp Hgb Conc. 33.8 g/dL (33.0-37.0); Mean Corpuscular Hgb 25.9 pg (27.0-31.0); Mean Corpuscular Volume 76.8 fL (81.0-99.0); Mean Platelet Volume 8.4 fL (7.4-10.4); Nucleated Red Blood Cells % 0 %; Platelet Count 270 10^3/uL (130-400); Red Blood Cell Count 4.01 10^6/uL (4.20-5.40); Red Cell Dist. Width 19.9 % (11.5-14.5); White Blood Cell Count 5.2 10^3/uL (4.8-10.8)
[2025-01-12 06:26] LABS: ALT (SGPT) 23 U/L (0-35); AST (SGOT) 36 U/L (14-36); Albumin 2.4 g/dl (3.5-5.0); Alkaline Phosphatase 71 U/L (38-126); Blood Urea Nitrogen 5 mg/dl (7-17); Calcium 7.9 mg/dl (8.4-10.2); Carbon Dioxide 28 mmol/L (22-30); Chloride 107 mmol/L (98-107); Estimated Creatinine Clearance 66 ml/min; Glucose 93 mg/dl (70-99); Magnesium 1.8 mg/dl (1.6-2.3); Potassium 3.8 mmol/L (3.5-5.1); Sodium 136 mmol/L (135-145); Total Bilirubin 0.9 mg/dl (0.2-1.3); Total Protein 4.6 g/dl (6.3-8.2); eGFR > 60.00
[2025-01-12] MEDS: MOTRIN 400 MG PO ×3 (07:13→20:21)
[2025-01-12 07:25] VITALS: BP 152/91
--- NOTE | 2025-01-12 08:41 | W.PN.CRS1 ---
Today's Communication / Plan
-
regular diet
possible discharge later today
Assessment/Plan
-
69 yo female with a h/o advanced ovarian cancer s/p neoadjuvant chemo now POD#5 Sigmoid resection with primary anastomosis, and takedown of splenic flexure during an exploratory laparotomy, total hysterectomy, omentectomy, and appendectomy by
Tiesha
No CBC today
Afebrile, VSS
Plan:
-Advanced to regular this morning by Dr. Motley
-IVF as per primary team
-OOB as tolerated
-Lovenox for DVT prophylaxis.
-PPI for GI ppx
-OR pathology pending
-Pain control: Dilaudid, ibuprofen, acetaminophen q6hr
-OKay for discharge from our perspective if tolerating a diet. Follow in the office in [address] Bullard for a follow up appointment.
Subjective Data
Procedure
01/05- Sigmoid resection with primary anastomosis, and takedown of splenic flexure during an exploratory laparotomy, total hysterectomy, omentectomy, and appendectomy by Dr. Motley
Subjective Data
Date of Service: January 12, 2025
Patient states she has no nausea or vomiting. She is having gas. She has no bowel function.
Objective Data
-
Vital Signs
Temp Pulse Resp BP Pulse Ox
98.3 F 79 16 152/91 99
01/12/25 07:25 01/12/25 07:25 01/12/25 07:25 01/12/25 07:25 01/12/25 07:25
Intake & Output
01/11/25 01/12/25 01/13/25
06:59 06:59 06:59
Intake Total 2009 582 / 582
Balance 2009 582 / 582
Intake:
Oral fluids 960 / 960 480 / 480
IV fluids (Total) 1050 / 1050
IV piggybacks 102 / 102
Other:
Number of approximated MODERATE 2
amounts of urine
Lab Results
01/12/25 05:42
01/12/25 05:42
Physical Exam
-
General: No Acute Distress and AOx3
Abdomen: Soft, Non Distended and Non Tender
Skin: Warm and Dry
Incision: Clear, Dry, Intact
[2025-01-12] MEDS: MAGNESIUM OXIDE 500 MG PO (08:56)
[2025-01-12] MEDS: PROTONIX 40 MG PO (08:57)
[2025-01-12] MEDS: VITAMIN D3 (cholecalciferol) 10 MCG PO (08:57)
--- NOTE | 2025-01-12 09:17 | CM ---
Reviewed the chart notes. Patient on regular diet, possible discharge later today. CM continues to be available to patient/family and is monitoring medical plan for needs at discharge.
Plan: Discharge to home with [facility] services.
--- NOTE | 2025-01-12 10:54 | W.PN.HOSP.TC ---
Today's Communication/Plan
-
see A/P
Assessment / Plan
Assessment / Plan
69-year-old female with history of ovarian cancer s/p exploratory laparotomy, radical tumor debulking including total abdominal hysterectomy, BSO, omentectomy and multiple peritoneal resection, lymph node dissection, appendectomy, sigmoid resection
and colorectal anastomosis and mobilization of the splenic flexure. Patient lost about 1 L of blood and received 4 units PRBCs and 2 units FFP's .
Ovarian cancer was diagnosed in May 2024 when she had pelvic pressure and found a right adnexal mass. CA 125 in July 01, 2024 was 134. Patient received 1 cycle of chemotherapy 08/14/2024 and had a lot of side effects. She saw alternate
oriental medicine practitioner and started with supplements. She was not feeling better and went back to chemotherapy. She had another chemotherapy with Taxol, carboplatin and bevacizumab. She has had 4 cycles so far and the last cycle was at the
end of November 2024.
Chest x-ray-mild right pleural effusion.
A/P:
# Advanced ovarian mass
CA 125 to 259
s/p extensive surgery 01/05/2025: MICHELLE, BSO, omentectomy, tumor debulking, sigmoid resection, infraglottic and gastrocolic omentectomy, peritoneal resection, lymph node resection, appendectomy, sigmoid resection, colorectal anastomosis and
mobilization of the splenic flexure (Dr. Bullard/Dr. Motley)
Status post 4 units of PRBC and 2 units FFP's
NG tube out, diet advanced to regular and pt tolerated well
Cont pain control with scheduled Tylenol, Ibuprofen PRN
Off opiate with possibly developing ileus (noted AXR 01/10)- Abd today soft, non-tender and normal bowel sound
Add Senokot-S PRN and Miralax PRN for constipation
# Hypokalemia
# Hypomagnesemia
repleted lytes
# Malignant ascites with paracentesis 11 times (01/01/2025, 12/21/2024, 12/08/2024, 11/18/2024, 10/26/2024, 10/16/2024, 10/09/2024, 09/28/2024, 08/17/2024, 08/10/2024, 08/04/2024)
# Hypertension
follow blood pressure postoperatively.
Not on meds as OP.
BP acceptable.
# Anemia multifactorial likely secondary to baseline thalassemia, with acute blood loss anemia postoperative and anemia of chronic disease
# Thalassemia
# Hypoalbuminemia
# Vit D Def
replace
# Ex-smoker quit in 1985
DVT prophylaxis-Lovenox
Full code
Dispo: PT OT eval: no skilled PT need
Anticipated Discharge: Within 24 hours
Subjective/Interval History
-
Date of Service: January 12, 2025
Objective Data
-
Labs:
Laboratory Results
01/12/25
05:42
WBC 5.2
Hgb 10.4 L
Hct 30.8 L
Plt Count 270
Sodium 136
Potassium 3.8
Chloride 107
Carbon Dioxide 28
BUN 5 L
Creatinine 0.4 L
Glucose 93
Calcium 7.9 L
Total Bilirubin 0.9
AST 36
ALT 23
Alkaline Phosphatase 71
Vital Signs:
Vital Signs
Temp Pulse Resp BP Pulse Ox
36.8 C 79 16 152/91 99
01/12/25 07:25 01/12/25 07:25 01/12/25 07:25 01/12/25 07:25 01/12/25 07:25
I&O
01/11/25 01/12/25 01/13/25
06:59 06:59 06:59
Intake Total 2009 582 / 582
Balance 2009 582 / 582
Review of Systems
-
History Source: Patient
Abdomen/GI: Denies Abdominal Pain
Physical Exam
-
General: Well Developed, Well Nourished, No Apparent Distress, Comfortable and Conversant; Negative Respiratory Distress
HEENT: Normocephalic, Atraumatic, Nose Appears Normal and Ears Appear Normal; Negative Oxygen
Respiratory: Clear to Auscultation and Non Labored Respirations; Negative Accessory Resp Muscle Use
Cardiac: Regular Rhythm and S1/S2
GI: Soft, Normal Bowel Sounds, Distended and Other (incision site/gail clean and intact ); Negative Tender (mild diffuse)
Musculoskeletal: Edema, Right Lower Extrem and Edema, Left Lower Extrem
Skin: Warm and Dry
Neuro: Awake, Alert, Oriented and AO x 3
Psych: Calm and Intact Judgement/Insight
Data Reviewed
-
Diagnostic Radiology: Report Reviewed by me
Labs: Labs Reviewed by me
--- NOTE | 2025-01-12 11:41 | W.PN.GYNONC ---
Today's Communication
-
possible dc homenext 24 hr
Impression / Plan
-
POD 7
patient doing well , appears to have resumed her bowel function, but only is passing flatus
Diet was advanced to regular diet breakfast was tolerated well
We can discontinue IV fluids
She has mild elevation of systolic pressures, it is likely due to some of the abdominal gas pain and discomfort, continue to observe
Continue DVT and GI prophylaxis. Planning for Eliquis 2.5 mg p.o. twice daily x 3 additional weeks after surgery for a total of 4 weeks
Appreciate input by my colleagues in colorectal surgery and internal medicine
I will follow-up later with her and if she is doing well she will be discharged.
Ar Motley
[phone]
Subjective / Interval History
-
POD7
Patient tolerated full liquids yesterday, continues to pass flatus, she did have some gas pains yesterday but overnight continue to pass flatus and was able to tolerate regular diet today. She feels much better with less pain and discomfort. She
has been ambulating in overall slept well. She has not had a bowel movement yet
Objective Data
-
Lab Results:
01/12/25 05:42
01/12/25 05:42
Physical Exam
Vital Signs / I&O
Vitals
Temp Pulse Resp BP Pulse Ox
98.3 F 79 16 152/91 99
01/12/25 07:25 01/12/25 07:25 01/12/25 07:25 01/12/25 07:25 01/12/25 07:25
I&O
01/10/25 01/11/25 01/12/25 01/13/25
06:59 06:59 06:59 06:59
Intake Total 1302 / 1302 2009 582 / 582
Balance 1302 / 1302 2009 582 / 582
Physical Exam
General: Comfortable and Good Appetite
HEENT: Moist Mucous Membranes
Respiratory: Clear and Non Labored Respirations
Cardiac: S1/S2 and Regular Rhythm
GI: Soft, Non Distended and Other (Incision is intact with gail in place, there is no erythema or drainage)
Neuro: Awake, Alert and Oriented
Hematologic/Lymphatic: No Lymphadenopathy
Psych: Calm and Intact Judgement
Data Reviewed
-
Medical Tests (Nuc Med, Echo, EKG etc): Image personally visualized and interpreted
[2025-01-12] MEDS: MAALOX PLUS 1 TABLET PO ×2 (13:02→20:34)
--- NOTE | 2025-01-12 13:20 | VATNOTE ---
Patient declined weekly port re-access, stating she is to be discharged tomorrow.
[2025-01-12 15:25] VITALS: BP 141/78
[2025-01-12 15:55] VITALS: BP 141/78
[2025-01-12] MEDS: LOVENOX SC (17:49)
[2025-01-12 23:00] VITALS: BP 148/82
[2025-01-13] MEDS: TYLENOL PO (00:30)
[2025-01-13 04:57] LABS: Hematocrit 28.3 % (37.0-47.0); Hemoglobin 9.7 g/dL (12.0-16.0); Mean Corp Hgb Conc. 34.3 g/dL (33.0-37.0); Mean Corpuscular Hgb 26.6 pg (27.0-31.0); Mean Corpuscular Volume 77.7 fL (81.0-99.0); Mean Platelet Volume 8.8 fL (7.4-10.4); Platelet Count 293 10^3/uL (130-400); Red Blood Cell Count 3.64 10^6/uL (4.20-5.40); Red Cell Dist. Width 20.2 % (11.5-14.5)
[2025-01-13] MEDS: TYLENOL 650 MG PO ×3 (05:02→13:05)
[2025-01-13 05:24] LABS: Blood Urea Nitrogen 10 mg/dl (7-17); Calcium 8.1 mg/dl (8.4-10.2); Carbon Dioxide 28 mmol/L (22-30); Chloride 108 mmol/L (98-107); Estimated Creatinine Clearance 66 ml/min; Glucose 98 mg/dl (70-99); Magnesium 1.8 mg/dl (1.6-2.3); Potassium 3.8 mmol/L (3.5-5.1); Sodium 137 mmol/L (135-145); eGFR > 60.00
--- NOTE | 2025-01-13 06:31 | W.PN.GYNONC ---
Today's Communication
-
DC home today
Impression / Plan
-
POD 8
patient doing well , appears to have resumed her bowel function
1. GI: Diet was advanced to regular diet and simona yesterday ok, i advised her against any laxatives given recent anastamosis
2/ She has mild elevation of systolic pressures, continue to observe
3. Continue DVT and GI prophylaxis.
-Planning for Eliquis 2.5 mg p.o. twice daily x 3 additional weeks after surgery for a total of 4 weeks
Appreciate input by my colleagues in colorectal surgery and internal medicine
after evaluation by medicine and CRS I suspect she will be discharged.
follow up with me on Saturday for staple removal
Ar BusterDavid Motley
[phone]
Subjective / Interval History
-
POD8
looks well, slept ok
pain is minimal
simona diet ok x 3 times yesterday
Objective Data
-
Lab Results:
01/13/25 04:26
01/13/25 04:26
Physical Exam
Vital Signs / I&O
Vitals
Temp Pulse Resp BP Pulse Ox
98.4 F 79 16 148/82 97
01/12/25 23:00 01/12/25 23:00 01/12/25 23:00 01/12/25 23:00 01/13/25 00:07
I&O
01/10/25 01/11/25 01/12/25 01/13/25
06:59 06:59 06:59 06:59
Intake Total 1302 / 1302 20092 / 582 1919
Balance 1302 / 1302 2009 582 / 582 1919
Physical Exam
General: No Apparent Distress and Comfortable
Respiratory: Clear and Non Labored Respirations
Cardiac: S1/S2 and Regular Rhythm
GI: Soft, Non Tender and Other (incision is dry with gail)
Neuro: AO x 3 and No Motor Deficits
[2025-01-13 06:55] VITALS: BP 149/78
[2025-01-13] MEDS: MAGNESIUM OXIDE 500 MG PO (08:54)
[2025-01-13] MEDS: PROTONIX 40 MG PO (08:54)
[2025-01-13] MEDS: VITAMIN D3 (cholecalciferol) 10 MCG PO (08:54)
[2025-01-13] MEDS: MOTRIN 400 MG PO ×2 (08:55→13:04)
--- NOTE | 2025-01-13 08:56 | W.PN.CRS1 ---
Today's Communication / Plan
-
ok for dc
Assessment/Plan
-
69 yo female with a h/o advanced ovarian cancer s/p neoadjuvant chemo now POD#7 Sigmoid resection with primary anastomosis, and takedown of splenic flexure during an exploratory laparotomy, total hysterectomy, omentectomy, and appendectomy by
Tiesha
WBC 5.0, Hgb 9.7 (10.4)
Afebrile, VSS
Plan:
-Continue a regular diet
-OOB as tolerated
-Lovenox for DVT prophylaxis.
-PPI for GI ppx
-OR pathology pending
-Pain control: Dilaudid, ibuprofen, acetaminophen q6hr
-OKay for discharge from our perspective if tolerating a diet. Follow in the office in [address] Bullard for a follow up appointment.
Subjective Data
Procedure
01/05- Sigmoid resection with primary anastomosis, and takedown of splenic flexure during an exploratory laparotomy, total hysterectomy, omentectomy, and appendectomy by Dr. Motley
Subjective Data
Date of Service: January 13, 2025
Patient states she still has some lower abdominal pain. She is passing flatus. Tolerating a diet. Denies nausea or vomiting.
Objective Data
-
Vital Signs
Temp Pulse Resp BP Pulse Ox
98.7 F 74 16 149/78 97
01/13/25 06:55 01/13/25 06:55 01/13/25 06:55 01/13/25 06:55 01/13/25 06:55
Intake & Output
01/12/25 01/13/25 01/14/25
06:59 06:59 06:59
Intake Total 582 / 582 1919
Balance 582 / 582 1919
Intake:
Oral fluids 480 / 480 1919
IV piggybacks 102 / 102
Other:
Number of approximated MODERATE 2
amounts of urine
Lab Results
01/13/25 04:26
01/13/25 04:26
Physical Exam
-
General: No Acute Distress and AOx3
Abdomen: Soft, Non Distended and Tender (mild lower portion of incision)
Skin: Warm and Dry
Incision: Clear, Dry, Intact
--- NOTE | 2025-01-13 10:05 | CM ---
Reviewed the chart notes and spoke with the patient at the bedside. IMM reviewed. Patient anticipates discharge to home today. Spouse will provide transportation. CM continues to be available to patient/family and is monitoring medical plan for
needs at discharge.
Plan: Discharge to home when medically stable with [facility] services.
--- NOTE | 2025-01-13 12:05 | W.PN.HOSP.TC ---
Today's Communication/Plan
-
see A/P
Assessment / Plan
Assessment / Plan
69-year-old female with history of ovarian cancer s/p exploratory laparotomy, radical tumor debulking including total abdominal hysterectomy, BSO, omentectomy and multiple peritoneal resection, lymph node dissection, appendectomy, sigmoid resection
and colorectal anastomosis and mobilization of the splenic flexure. Patient lost about 1 L of blood and received 4 units PRBCs and 2 units FFP's .
Ovarian cancer was diagnosed in May 2024 when she had pelvic pressure and found a right adnexal mass. CA 125 in July 01, 2024 was 134. Patient received 1 cycle of chemotherapy 08/14/2024 and had a lot of side effects. She saw alternate
oriental medicine practitioner and started with supplements. She was not feeling better and went back to chemotherapy. She had another chemotherapy with Taxol, carboplatin and bevacizumab. She has had 4 cycles so far and the last cycle was at the
end of November 2024.
Chest x-ray-mild right pleural effusion.
A/P:
# Advanced ovarian mass
CA 125 to 259
s/p extensive surgery 01/05/2025: MICHELLE, BSO, omentectomy, tumor debulking, sigmoid resection, infraglottic and gastrocolic omentectomy, peritoneal resection, lymph node resection, appendectomy, sigmoid resection, colorectal anastomosis and
mobilization of the splenic flexure (Dr. Bullard/Dr. Motley)
Status post 4 units of PRBC and 2 units FFP's
NG tube out, diet advanced to regular and pt tolerated well
Cont pain control with scheduled Tylenol, Ibuprofen PRN
Off opiate with possibly developing ileus (noted AXR 01/10)- Abd today soft, non-tender and normal bowel sound
Added Senokot-S PRN and Miralax PRN for constipation
Discharge planning per Dr Motley, [facility] DVT and GI prophylaxis. Eliquis 2.5 mg p.o. twice daily x 3 additional weeks after surgery for a total of 4 weeks
# Hypokalemia
# Hypomagnesemia
repleted lytes
# Malignant ascites with paracentesis 11 times (01/01/2025, 12/21/2024, 12/08/2024, 11/18/2024, 10/26/2024, 10/16/2024, 10/09/2024, 09/28/2024, 08/17/2024, 08/10/2024, 08/04/2024)
# Hypertension
follow blood pressure postoperatively.
Not on meds as OP.
BP acceptable.
# Anemia multifactorial likely secondary to baseline thalassemia, with acute blood loss anemia postoperative and anemia of chronic disease
# Thalassemia
# Hypoalbuminemia
# Vit D Def
replace
# Ex-smoker quit in 1985
DVT prophylaxis-Lovenox
Full code
Dispo: PT OT eval: no skilled PT need
Anticipated Discharge: Today
Subjective/Interval History
-
Date of Service: January 13, 2025
Objective Data
-
Labs:
Laboratory Results
01/13/25
04:26
WBC 5.0
Hgb 9.7 L
Hct 28.3 L
Plt Count 293
Sodium 137
Potassium 3.8
Chloride 108 H
Carbon Dioxide 28
BUN 10
Creatinine 0.4 L
Glucose 98
Calcium 8.1 L
Vital Signs:
Vital Signs
Temp Pulse Resp BP Pulse Ox
37.1 C 74 16 149/78 97
01/13/25 06:55 01/13/25 06:55 01/13/25 06:55 01/13/25 06:55 01/13/25 08:50
I&O
01/12/25 01/13/25 01/14/25
06:59 06:59 06:59
Intake Total 582 / 582 1919 180 / 180
Balance 582 / 582 1919 180 / 180
[2025-01-13 14:55] VITALS: BP 158/88
== END 2025-01-13 15:25 | disposition home health service (06) | DRG 737 ==
LOC: 2 SOUTH 11:08
PROVIDERS: Hospitalist; Internal Medicine; Surgery; ADMITTING PHYSICIAN Obstetrics & Gynecology Gynecologic Oncology; FAMILY PHYSICIAN Physician Assistant Medical; OTHER PHYSICIAN Hospitalist
PROC: 0DTU0ZZ Resection of Omentum, Open Approach (ICD-10-PCS; 2025-01-05)
PROC: 07BC0ZX Excision of Pelvis Lymphatic, Open Approach, Diagnostic (ICD-10-PCS; 2025-01-05)
PROC: 0DTJ0ZZ Resection of Appendix, Open Approach (ICD-10-PCS; 2025-01-05)
PROC: 30233K1 Transfusion of Nonautologous Frozen Plasma into Peripheral Vein, Percutaneous Approach (ICD-10-PCS; 2025-01-05)
PROC: 0UT90ZZ Resection of Uterus, Open Approach (ICD-10-PCS; 2025-01-05)
PROC: 0DBU0ZZ Excision of Omentum, Open Approach (ICD-10-PCS; 2025-01-05)
PROC: 0UT20ZZ Resection of Bilateral Ovaries, Open Approach (ICD-10-PCS; 2025-01-05)
PROC: 0DBW0ZZ Excision of Peritoneum, Open Approach (ICD-10-PCS; 2025-01-05)
PROC: 30233N1 Transfusion of Nonautologous Red Blood Cells into Peripheral Vein, Percutaneous Approach (ICD-10-PCS; 2025-01-05)
PROC: 0UT70ZZ Resection of Bilateral Fallopian Tubes, Open Approach (ICD-10-PCS; 2025-01-05)
PROC: 0DTN0ZZ Resection of Sigmoid Colon, Open Approach (ICD-10-PCS; 2025-01-05)
DX: C56.2 Malignant neoplasm of left ovary (principal); D62 Acute posthemorrhagic anemia; R18.0 Malignant ascites; K56.7 Ileus, unspecified; E87.6 Hypokalemia; E83.42 Hypomagnesemia; D56.9 Thalassemia, unspecified; D63.0 Anemia in neoplastic disease; I10 Essential (primary) hypertension
CPT/HCPCS: 88304; 88305; 88307; 88332; 36415; 71045; 74018; 80048; 80053; 82306; 82378; 83735; 84443; 85025; 85027; 85610; 85730; 86304; 86850; 86900; 86901; 86920; 88331; 88341; 88342; 88360; 93005; 97161; 97165; 97535; P9016; P9045; P9059

== ENCOUNTER 2025-01-13 19:59 | Emergency (ER) | payer MEDICARE, OTHER, SELFPAY ==
[2025-01-13 20:05] VITALS: BMI 23.9
[2025-01-13 20:06] VITALS: BP 157/86
[2025-01-13] MEDS: PEPCID 20 MG IV (20:44)
[2025-01-13] MEDS: DECADRON 10 MG IV (20:44)
[2025-01-13 21:00] VITALS: BP 157/88
[2025-01-13 21:19] VITALS: BP 160/89
[2025-01-13 22:00] VITALS: BP 148/98
[2025-01-13 23:00] VITALS: BP 165/88
[2025-01-14] VITALS: BP 162/93
--- NOTE | 2025-01-14 00:37 | ED.GENMED ---
History of Present Illness
General
Chief Complaint: Allergic Reaction
Source: patient
Time Seen by Provider: 01/13/25 20:05
History of Present Illness
History of Present Illness:
Note:
CHIEF COMPLAINT(S)
Throat scratchiness and suspected allergic reaction.
HISTORY OF PRESENT ILLNESS
The patient is a 69-year-old female with a recent history of hysterectomy and tumor removal, discharged after an eight-day hospital stay. She was on enoxaparin in the hospital and prescribed apixaban, which she took for the first time around 6:30
PM. Shortly after ingestion, she experienced throat scratchiness, swelling on the left side, and redness described as �weird.� She took diphenhydramine 25 mg, which provided some improvement, but she continues to feel as if there is mucus in her
throat. She denies difficulty breathing but reports an inability to swallow normally. Her pain from recent surgery is noted as severe, with a history of a bowel resection. She has not had a bowel movement since surgery and is wearing an abdominal
binder.
ADDITIONAL HISTORY OBTAINED FROM SOURCES OTHER THAN THE PATIENT
The prescribed apixaban was possibly for clot prevention post-surgery.
- GENERAL
Patient is awake, alert, and oriented. No drooling or stridor.
- HEAD, EYES, EARS, NOSE, AND THROAT: Edema of the uvula and pharyngeal arches. Tongue and lips appear normal.
- RESPIRATORY
No wheezing, bilateral breath sounds equal.
- CARDIOVASCULAR
Regular heart rate and rhythm, no murmurs.
- ABDOMEN
Slight distention with a midline intact incision and noted gail, without redness or drainage. No focal tenderness.
- EXTREMITIES
No lower extremity edema.
PLAN
Administer additional antihistamines and consider H2 blockers such as ranitidine. Administer corticosteroids with a dose of 10 mg dexamethasone. Review old medical records for any relevant history and assess for potential side effects of apixaban.
DIFFERENTIAL DIAGNOSIS
The Differential Diagnosis includes, in no particular order and is not limited to:
- Allergic reaction to apixaban
- Angioedema
- Post-surgical infection
- Gastroesophageal reflux disease
- Hypersensitivity reaction
- Esophageal spasm
- Laryngopharyngeal reflux
- Thrombosis
- Pulmonary embolism
- Anaphylaxis
Disposition:
SUMMARY OF ENCOUNTER
The patient presented with an acute allergic angioedema response to apixaban. She had been observed for more than four hours and showed significant improvement. On reassessment, there was very mild pharyngeal edema, but overall improvement with an
intact airway and no stridor. The patient expressed a strong desire to return home. During her stay, she received a dose of enoxaparin.
DISPOSITION
The patient is stable and will be discharged with close follow-up.
EMERGENCY TREATMENTS ADMINISTERED
A dose of enoxaparin was administered during the visit and steroids were given intravenously.
MANAGEMENT OF THE PATIENTS CARE WAS DISCUSSED WITH
I discussed the management plan with the patients oncology and hematology team, who concur with the use of enoxaparin.
PLAN
The patient was observed for significant improvement and will be transitioned to enoxaparin for anticoagulation therapy. She is instructed to follow up with her ornamenter, Dr. Curiel, the next day. If unable to secure enoxaparin, she is
advised to return to the emergency department.
MEDICATION RECONCILIATION
Enoxaparin was administered in the emergency department and prescribed for home use, as per discussion with hematology/oncology.
DIAGNOSIS
Acute allergic angioedema response to apixaban.
PATHOLOGIES TO CONSIDER
Allergic reaction to medication (apixaban-induced angioedema).
Past History
Past History
ED Past Medical History: None
Social History
Tobacco: Non-smoker
Personal: Other (Engaged)
Phy Exam
Physical Exam
Physical Exam:
.
Course
Orders/Labs/Results
Orders:
Orders
01/13/25 20:17
Dexamethasone Sod Phosphate [Decadron] 10 mg IV NOW STA
Famotidine [Pepcid] 20 mg IV NOW STA
01/14/25 01:16
Enoxaparin Sodium [Lovenox] 40 mg SC NOW STA
Vital Signs
Initial and Last Documented VS:
Initial Vital Signs
Pulse Resp BP Pulse Ox
96 13 157/86 98
01/13/25 20:06 01/13/25 20:06 01/13/25 20:06 01/13/25 20:06
Last Documented Vital Signs
Temp Pulse Resp BP Pulse Ox
98.2 F 95 27 162/93 96
01/13/25 21:23 01/14/25 00:30 01/14/25 00:30 01/14/25 00:00 01/14/25 00:38
*Pulse Oximetry
SaO2: 96
Oxygen Mode of Delivery: Room air
Patient hypoxic: no
*Critical Care Note
Total Time (30-74mins, 75-104mins- exclusive of procedures): Not Applicable
ED Attending Note
-
Portions of this chart may have been created with voice recognition software.� Occasional wrong word or��sound alike� substitutions may have occurred due to the inherent limitations of voice recognition software.
Discharge Plan
Departure
Patient Disposition: Home (Routine Discharge)
Date of Disposition: 01/14/25
Time of Disposition: 00:38
Admit to: Med/Surg
Patient with high blood pressure during this ER visit?: Yes
Discharge Problem:
Angioedema
Instructions: Angioedema, Allergic reaction - ED discharge instructions, BLOOD PRESSURE
Prescriptions:
New
enoxaparin [Lovenox] 40 mg/0.4 mL syringe
40 mg SC DAILY Qty: 4 0RF
No Action
multivitamin Tablet
1 tab PO Q48H
Vitamin C 1,000 mg Tablet Extended Release
1,000 mg PO Q12H
cholecalciferol (vitamin D3) [Vitamin D3] 50 mcg (2,000 unit) Tablet
50 mcg PO DAILY
zinc acetate 50 mg (zinc) Capsule
50 mg PO DAILY
red yeast rice 600 mg Tablet
1,200 mg PO BID
Probiotic 10 billion cell Capsule
50,000 mmu cells PO DAILY
Magnesium Complex
675 mg PO DAILY
docusate sodium [Colace] 100 mg Capsule
100 mg PO DAILY
ibuprofen 400 mg Tablet
400 mg PO Q4HPRN PRN (Reason: moderate pain) Qty: 30 0RF
pantoprazole 40 mg Tablet,Delayed Release (Dr/Ec)
40 mg PO DAILY Qty: 30 0RF
acetaminophen 325 mg Tablet
650 mg PO Q6H Qty: 30 0RF
Eliquis 2.5 mg tablet
2.5 mg PO BID 21 Days Qty: 42 0RF
simethicone 80 mg tablet,chewable
80 mg PO DAILY PRN (Reason: bloating) Qty: 30 0RF
vitamin E 268 mg (400 unit) Capsule
268 mg PO DAILY
psyllium seed (sugar) Powder
1 tbsp PO DAILY
Referrals:
Donnell Taylor PA-C [Family Provider, Family Practice]
Activity Restrictions/Additional Instructions:
Please coordinate your Lovenox with your ornamenter tomorrow. Return immediately for chest pain, shortness of breath, worsening abdominal pain, vomiting or if you are unable to get your Lovenox. You were given a dose of Lovenox here in the
emergency department
Interventions
Interventions:
*Risk Screen - Suicide Last Done: 01/13/25 20:06
*General Assessment Last Done: 01/13/25 20:06
*Neglect/Abuse Screening Last Done: 01/13/25 20:10
*ED- Fall Risk Assessment Last Done: 01/13/25 20:06
*ED COVID-19 Vaccine History Last Done: 01/13/25 20:06
ED- Cardiac Assessment Last Done: 01/13/25 20:12
ED- Pulmonary Assessment Last Done: 01/13/25 20:12
ED-Skin Assessment Last Done: 01/13/25 20:12
Discharge Date and Time
Print Language: [id number]
[2025-01-14 01:00] VITALS: BP 137/85
[2025-01-14] MEDS: LOVENOX 40 MG SC (01:29)
== END 2025-01-14 02:19 | disposition home or self-care (01) ==
LOC: EMR 19:59
PROVIDERS: EMERGENCY PHYSICIAN Emergency Medicine; FAMILY PHYSICIAN Physician Assistant Medical
DX: T78.3XXA Angioneurotic edema, initial encounter (principal); T50.995A Adverse effect of other drugs, medicaments and biological substances, initial encounter; X58.XXXA Exposure to other specified factors, initial encounter
CPT/HCPCS: 96374; 96375; 96372; 99284

== ENCOUNTER → 2025-02-08 15:44 | Outpatient (REF) | payer MEDICARE, OTHER, SELFPAY ==
[2025-02-08 14:03] LABS: Hematocrit 33.4 % (37.0-47.0); Hemoglobin 10.5 g/dL (12.0-16.0); Mean Corp Hgb Conc. 31.4 g/dL (33.0-37.0); Mean Corpuscular Volume 79.9 fL (81.0-99.0); Platelet Count 233 10^3/uL (130-400); Red Cell Dist. Width 18.4 % (11.5-14.5)
[2025-02-08 14:54] LABS: ALT (SGPT) 21 U/L (0-35); AST (SGOT) 21 U/L (14-36); Albumin 4.3 g/dl (3.5-5.0); Alkaline Phosphatase 48 U/L (38-126); Blood Urea Nitrogen 21 mg/dl (7-17); Calcium 9.3 mg/dl (8.4-10.2); Carbon Dioxide 29 mmol/L (22-30); Chloride 105 mmol/L (98-107); Glucose 105 mg/dl (70-99); Potassium 4.0 mmol/L (3.5-5.1); Sodium 138 mmol/L (135-145); Total Protein 6.9 g/dl (6.3-8.2); eGFR > 60.00
[2025-02-08 18:02] LABS: CA 125 25.5 U/mL (0-35)
== END ==
LOC: OIDL 15:44
PROVIDERS: ATTENDING PHYSICIAN Obstetrics & Gynecology Gynecologic Oncology
DX: C80.0 Disseminated malignant neoplasm, unspecified (principal); D56.9 Thalassemia, unspecified; C56.2 Malignant neoplasm of left ovary; G89.3 Neoplasm related pain (acute) (chronic)
CPT/HCPCS: 80053; 85025; 86304

== ENCOUNTER → 2025-03-23 14:32 | Outpatient (REF) | payer MEDICARE, OTHER, SELFPAY ==
[2025-03-23 15:59] LABS: Hematocrit 32.4 % (37.0-47.0); Hemoglobin 10.0 g/dL (12.0-16.0); Mean Corp Hgb Conc. 30.9 g/dL (33.0-37.0); Mean Corpuscular Volume 74.1 fL (81.0-99.0); Nucleated Red Blood Cells % 0 %; Platelet Count 178 10^3/uL (130-400); Red Cell Dist. Width 16.0 % (11.5-14.5)
[2025-03-23 16:20] LABS: ALT (SGPT) 24 U/L (0-35); AST (SGOT) 25 U/L (14-36); Albumin 4.4 g/dl (3.5-5.0); Alkaline Phosphatase 40 U/L (38-126); Blood Urea Nitrogen 18 mg/dl (7-17); Calcium 9.4 mg/dl (8.4-10.2); Carbon Dioxide 29 mmol/L (22-30); Chloride 104 mmol/L (98-107); Glucose 90 mg/dl (70-99); Potassium 4.0 mmol/L (3.5-5.1); Sodium 137 mmol/L (135-145); Total Protein 6.9 g/dl (6.3-8.2); eGFR > 60.00
== END ==
LOC: REG 14:32
PROVIDERS: ATTENDING PHYSICIAN Physician Assistant Surgical; FAMILY PHYSICIAN Physician Assistant Medical
DX: C80.0 Disseminated malignant neoplasm, unspecified (principal); D56.9 Thalassemia, unspecified; C56.2 Malignant neoplasm of left ovary; G89.3 Neoplasm related pain (acute) (chronic); C7A.1 Malignant poorly differentiated neuroendocrine tumors; C7A.8 Other malignant neuroendocrine tumors
CPT/HCPCS: 36415; 80053; 85025

== ENCOUNTER → 2025-03-25 13:25 | Outpatient (REF) | payer MEDICARE, OTHER, SELFPAY | LOC: RAD 13:25 | PROVIDERS: ATTENDING PHYSICIAN Physician Assistant Surgical; FAMILY PHYSICIAN Physician Assistant Medical | DX: C80.0 Disseminated malignant neoplasm, unspecified (principal); D56.9 Thalassemia, unspecified; G89.3 Neoplasm related pain (acute) (chronic); C7A.1 Malignant poorly differentiated neuroendocrine tumors; C7A.8 Other malignant neuroendocrine tumors; C56.2 Malignant neoplasm of left ovary | CPT/HCPCS: 71260; 74177; Q9967 ==

== ENCOUNTER → 2025-06-24 11:49 | Outpatient (REF) | payer MEDICARE, OTHER, SELFPAY | LOC: RAD 11:49 | PROVIDERS: ATTENDING PHYSICIAN Physician Assistant Medical | DX: M54.2 Cervicalgia (principal); M25.511 Pain in right shoulder | CPT/HCPCS: 72052; 73030 ==

== ENCOUNTER → 2025-07-20 11:30 | Outpatient (REF) | payer MEDICARE, OTHER, SELFPAY | LOC: PAVMRI 11:30 | PROVIDERS: ATTENDING PHYSICIAN Orthopaedic Surgery Hand Surgery; FAMILY PHYSICIAN Physician Assistant Medical | DX: M54.12 Radiculopathy, cervical region (principal) | CPT/HCPCS: 72141 ==